=== PATIENT | male | born 1945 | race African-American/Black ===

== ENCOUNTER 2017-12-29 10:37 | Emergency (ER) | payer MEDICARE, OTHER ==
[~2017-12-29] VITALS: Ht 195.6 cm; Wt 79.8 kg
[~2017-12-29 10:37] MED LIST: ASPIR 8181 MG ORAL; LEVAQUIN500 MG ORAL; METRONIDAZOLE500 MG ORAL; PROTONIX40 MG ORAL
[2017-12-29] MEDS ORDERED: Acetaminophen 500mg (ES) tab PO ONE (11:00)
[2017-12-29] MEDS ORDERED: NORCO 5-325 TA1 EACH ORAL (12:28)
[2017-12-29 12:37] VITALS: BP 175/91
--- NOTE | 2017-12-29 12:52 | Diagnostic Imaging Report ---
Indication: left ankle/foot pain Comparison: None Findings: 3 views of the left ankle and foot obtained. There is an acute fracture of the lateral malleolus. Soft tissue swelling noted adjacently. No other fractures are identified. There is an old, healed fracture of the fifth metatarsal. Mild hallux valgus noted. Narrowing of the first MTP joint demonstrated. IMPRESSION: Acute fracture of the lateral malleolus.
--- NOTE | 2017-12-29 14:58 | Emergency Room Report ---
History of Present Illness General Chief Complaint: Lower Extremity Injury Source: Patient Present Illness HPI 72-year-old male presents ED complaining of left ankle pain and swelling. States that 2 days ago he tripped and fell and rolled his ankle. Denies any other injuries. Notes pain and swelling to the left ankle, throbbing, 8 out of 10, nonradiating. Notes difficulty bearing weight. No other aggravating relieving factors. Denies any other associated symptoms Allergies: Coded Allergies: No Known Allergies (Unverified , 02/02/15) Patient History Past Medical History: none Past Surgical History: none Pertinent Family History: none Social History: Denies: smoking, alcohol use, drug use Immunizations: UTD Reviewed Nursing Documentation: PMH: Agreed; PSxH: Agreed Nursing Documentation-PMH Past Medical History: No History, Except For Hx Cardiac Problems: No Hx Cancer: No Hx Gastrointestinal Problems: Yes Hx Neurological Problems: No Review of Systems All Other Systems: negative except mentioned in HPI Physical Exam Vital Signs Date Time Temp Pulse Resp B/P (MAP) Pulse Ox O2 Delivery O2 Flow Rate FiO2 12/29/17 10:39 98.1 110 18 175/91 96 Room Air 98.1 Sp02 EP Interpretation: reviewed, normal General Appearance: no apparent distress, alert, GCS 15, non-toxic Head: normocephalic Eyes: bilateral eye normal inspection, bilateral eye PERRL ENT: normal ENT inspection Neck: normal inspection Respiratory: normal inspection Cardiovascular #1: normal inspection Gastrointestinal: normal inspection Rectal: deferred Genitourinary: no CVA tenderness Musculoskeletal: decreased range of motion, swelling - L ankle Neurologic: alert, oriented x3, responsive, motor strength/tone normal, sensory intact, speech normal Psychiatric: normal inspection Skin: normal inspection Lymphatic: normal inspection Procedures Splinting Splinting : Consent: Verbal Splint: poserior short Pre-Proc Neuro Vasc Exam: normal Post-Proc Neuro Vasc Exam: normal Patient Tolerated: Well Complications: None Medical Decision Making Diagnostic Impression: Primary Impression: Fibula fracture Qualified Codes: S82.65XA - Nondisplaced fracture of lateral malleolus of left fibula, initial encounter for closed fracture ER Course Hospital Course 72-year-old M presents to ED complaining of L ankle pain s/p trip and fall Differential diagnoses include: Fracture, dislocation, sprain, contusion Clinical course Patient placed on stretcher. After initial history and physical, I ordered pain medications and Xrays of L ankle Xrays prelim read shows lateal malleolus fx. placed in posterior splint, given crutches informed PMD Dr Lester of findings. i spoke to patient. gave instructions. i' ll provide ortho referral Diagnosis - fibula fx Stable and discharged to home with prescription for [place]. apply ice, keep elevated. weight bear as tolerated. Followup with ortho. Return to ED if symptoms recur or worsen Other X-Ray Diagnostic Results Other X-Ray Diagnostic Results #1: X-Ray ordered: L ankle # of Views/Limited Vs Complete: 3 View Indication: Pain EP Interpretation: Yes Interpretation: no dislocation, other - lateral malleolus fx Impression: Other - fx Other X-Ray Diagnostic Results #2: X-Ray ordered: L foot # of Views/Limited Vs Complete: 3 View Indication: Pain EP Interpretation: Yes Interpretation: no dislocation, no fractures Impression: Other - lateral malleolus fx Electronically Signed by: Electronically signed by Jeffry Rose MD Last Vital Signs Date Time Temp Pulse Resp B/P (MAP) Pulse Ox O2 Delivery O2 Flow Rate FiO2 12/29/17 12:37 98.1 18 175/91 96 Room Air 98.1 12/29/17 10:39 110 Status: improved Disposition: HOME, SELF-CARE Condition: Stable Scripts Hydrocodone Bit/Acetaminophen 5-325* (NORCO 5-325*) 1 Each Tablet 1 TAB ORAL Q6H PRN for For Pain, #10 TAB 0 Refills Prov: Jeffry Rose MD 12/29/17 Referrals: Hamilton Munguia MD Patient Instructions: Fibular Fracture With [facility] Jeffry Rose MD Dec 29, 2017 14:57
== END 2017-12-29 12:40 | disposition home or self-care (01) ==
LOC: EMR 11:20
DX: S82.65XA Nondisplaced fracture of lateral malleolus of left fibula, initial encounter for closed fracture (principal); W01.0XXA Fall on same level from slipping, tripping and stumbling without subsequent striking against object, initial encounter; Y92.9 Unspecified place or not applicable
CPT/HCPCS: 29515; 99284

== ENCOUNTER 2018-12-11 06:42 | Emergency (ER) | payer MEDICARE, OTHER ==
[~2018-12-11] VITALS: Ht 195.6 cm; Wt 79.4 kg
[~2018-12-11 06:42] MED LIST changes: +NORCO 5-325 TA1 EACH ORAL
[2018-12-11] MEDS ORDERED: NORVASC10 MG ORAL (06:50)
--- NOTE | 2018-12-11 06:52 | NUR ---
ED Nurse Note: pt walked in c/o left hip pain radiating to groin area x 3-4 days, pt denies any recent trauma nor injuries, denies problem with urination nor BM, pt reports pain worsen when prolonged sitting or activity. pt ambulates w/ steady gait with cane, vss, will cont monitor.
[2018-12-11 06:58] VITALS: BP 175/98
--- NOTE | 2018-12-11 07:06 | NUR ---
HAND-OFF: Report given to CAMMIE Calzada and endorsed care, pt vss, resp even and unlabored on RA, urine specimen sent to lab, spouse member at the bedside.
[2018-12-11 07:16] LABS: APPEARANCE,URINE CLEAR; BILIRUBIN, URINE NEGATIVE (NEGATIVE); COLOR,URINE PALE YELLOW; GLUCOSE, URINE (UA) NEGATIVE (NEGATIVE); KETONES,URINE NEGATIVE (NEGATIVE); LEUKOCYTE ESTERASE ,URINE NEGATIVE (NEGATIVE); NITRITE,URINE NEGATIVE (NEGATIVE); PH,URINE 7 (4.5-8.0); PROTEIN,URINE NEGATIVE (NEGATIVE); UROBILINOGEN,URINE NORMAL MG/DL (0.0-1.0)
--- NOTE | 2018-12-11 07:22 | NUR ---
ED Nurse Note: machining technician at the bed side for hip xray.
--- NOTE | 2018-12-11 07:47 | Emergency Room Report ---
History of Present Illness General Chief Complaint: Pain Source: Patient Present Illness HPI This patient complains of left flank pain radiating to his left groin for the past 3 days. He states it is a constant ache. He denies recent illness. He denies dysuria or hematuria. He denies fever or chills. He denies nausea or vomiting. He denies diarrhea or constipation. He has no other complaints. Allergies: Coded Allergies: No Known Allergies (Unverified , 02/02/15) Patient History Past Medical History: see triage record, HTN, other - cirrhosis Social History: Denies: smoking, alcohol use - Hx of ETOH abuse. No ETOH for many years., drug use Reviewed Nursing Documentation: PMH: Agreed; PSxH: Agreed Nursing Documentation-PMH Past Medical History: No Stated History Hx Cardiac Problems: No Hx Hypertension: Yes Hx Cancer: No Hx Gastrointestinal Problems: Yes Hx Neurological Problems: No Review of Systems All Other Systems: negative except mentioned in HPI Physical Exam Vital Signs Date Time Temp Pulse Resp B/P (MAP) Pulse Ox O2 Delivery O2 Flow Rate FiO2 12/11/18 06:45 98.2 87 18 175/98 (123) 95 Room Air Sp02 EP Interpretation: reviewed, normal General Appearance: no apparent distress, alert, GCS 15, non-toxic Head: normocephalic, atraumatic Eyes: bilateral eye normal inspection, bilateral eye PERRL ENT: hearing grossly normal, normal pharynx, no angioedema, normal voice Neck: full range of motion, supple/symm/no masses Respiratory: chest non-tender, lungs clear, normal breath sounds, no respiratory distress, no retraction, no accessory muscle use, speaking full sentences Cardiovascular #1: regular rate, rhythm, no edema Gastrointestinal: normal bowel sounds, non tender, soft, non-distended, no guarding, no rebound, other Rectal: deferred Musculoskeletal: back normal, normal range of motion, non-tender, other - Antalgic gait, uses a cane. Neurologic: alert, oriented x3, responsive, motor strength/tone normal, sensory intact, speech normal Psychiatric: judgement/insight normal, memory normal, mood/affect normal, no suicidal/homicidal ideation Skin: normal color, no rash, warm/dry, well hydrated Medical Decision Making Diagnostic Impression: Primary Impression: Flank pain Additional Impressions: Cirrhosis of liver Liver masses ER Course This patient has a clinical presentation consistent with undifferentiated L. flank pain. The pain was not reproducible. I did obtain a CT abd/pelvis to assess for intra-abdominal process. There was no acute process. However, there is an incidental finding of 3 liver masses. Also, the liver appears cirrhotic, which is in this patient's history. There was no etiology for the patient's left flank pain. Possibly this is musculoskeletal in etiology. Left hip x-ray was unremarkable. Urinalysis was unremarkable. There is no evidence of hip fracture or urinary tract infection. The patient was instructed to follow-up with the primary care physician for further evaluation of the liver masses. No emergency medical condition was identified. The patient was given return precautions and followup instructions. Laboratory Tests Test 12/11/18 06:59 Urine Color Pale yellow Urine Appearance Clear Urine pH 7 (4.5-8.0) Urine Specific [place] 1.005 (1.005-1.035) Urine Protein Negative (NEGATIVE) Urine Glucose (UA) Negative (NEGATIVE) Urine Ketones Negative (NEGATIVE) Urine Blood Negative (NEGATIVE) Urine Nitrite Negative (NEGATIVE) Urine Bilirubin Negative (NEGATIVE) Urine Urobilinogen Normal MG/DL (0.0-1.0) Urine Leukocyte Esterase Negative (NEGATIVE) Other X-Ray Diagnostic Results Other X-Ray Diagnostic Results : X-Ray ordered: L. hip # of Views/Limited Vs Complete: Complete Indication: Pain EP Interpretation: Yes Interpretation: no dislocation, no fractures Impression: No acute disease Electronically Signed by: Lara Waldron DO CT/MRI/US Diagnostic Results CT/MRI/US Diagnostic Results : Imaging Test Ordered: CT abd/pelvis Impression Liver masses. Cirrhosis. See the official report in electronic medical record. Last Vital Signs Date Time Temp Pulse Resp B/P (MAP) Pulse Ox O2 Delivery O2 Flow Rate FiO2 12/11/18 06:58 98.2 79 18 175/98 95 Room Air Status: improved Disposition: HOME, SELF-CARE Condition: Improved Lara Waldron DO Dec 11, 2018 07:47
--- NOTE | 2018-12-11 08:00 | NUR ---
ED Nurse Note: CHARGE NURSE CALLED CT TO FFU P WITH PROCEDURE.
--- NOTE | 2018-12-11 08:20 | NUR ---
ED Nurse Note: SECOND TIME TO CALL CT TO FF UP WITH PROCEDURE.
--- NOTE | 2018-12-11 08:25 | NUR ---
ED Nurse Note: PT TAKEN TO CT.
--- NOTE | 2018-12-11 08:31 | NUR ---
ED Nurse Note: PT CAME BACK FROM CT.
[2018-12-11] MEDS ORDERED: LIDODERM700 M1 TOPIC (09:10)
--- NOTE | 2018-12-11 09:17 | Diagnostic Imaging Report ---
Indication: Left hip pain for one day Technique: One view of the pelvis, 2 views of the left hip Comparison: none Findings: No acute fractures. No dislocations. There are extensive vascular calcifications. Vascular stents are seen in the left common iliac, right common femoral and right superficial femoral arteries. The joint spaces are preserved. There are degenerative changes of the lumbosacral junction Impression: No acute process. Findings as noted
[2018-12-11 09:18] VITALS: BP 156/90
--- NOTE | 2018-12-11 09:18 | Diagnostic Imaging Report ---
Indication: Flank pain radiating to left groin for past 3 days Technique: Spiral acquisitions obtained through the abdomen and pelvis. No oral contrast utilized, per emergency room physician request No IV contrast utilized, per referring physician request.. Multiplanar reconstructions were generated. Total dose length product 712.33 mGycm. CTDIvol(s) 13.58 mGy. Dose reduction achieved using automated exposure control Comparison: 02/06/2015 Findings: There is a right interpolar region calyceal calculus which measures approximately 3 mm diameter, not evident on the previous exam. No left renal calculi. No ureteral calculi demonstrated. No hydronephrosis nor hydroureter. Lack of IV contrast limits assessment of the renal parenchyma. No gross renal parenchymal mass or cyst. The bladder is unremarkable. The prostate is prominent. Lack of IV contrast limits assessment of the other solid organs. The liver demonstrates a soft tissue attenuation slightly low-attenuation mass in segment 2 which measures 3 cm in diameter. This is not evident previously. Another similar lesion is seen posteriorly in segment 7 measuring 2.3 cm in diameter. A third is seen at the posterior border of segment one measuring 2.5 cm in diameter. There is a tiny subcentimeter low-attenuation lesion in segment 4A, not definitely evident previously. The liver demonstrates surface nodularity. This is also new finding. The gallbladder contains small gallstones. These are not evident on the prior CT or an earlier 2015 sonogram. No gallbladder wall thickening or pericholecystic inflammation. No biliary ductal dilatation. The pancreas and spleen are unremarkable. A small calcification is seen in the posterior right adrenal, also evident previously. No retroperitoneal or mesenteric mass or adenopathy. No pelvic mass or adenopathy. The left testicle is somewhat high in the inguinal canal. This is not evident previously, however. Lack of enteric contrast limits assessment of the GI tract. There is colonic diverticulosis. No evidence of diverticulitis. The appendix is not definitely visualized, but no findings to suggest acute appendicitis are evident. No small bowel distention. Previously demonstrated free pelvic fluid is no longer evident. There is a small fat-containing umbilical hernia again demonstrated. The distal esophagus, stomach, duodenum are unremarkable. The included lung bases demonstrate small scattered bullae. There is some atelectatic changes or scarring at the lung bases. The bones demonstrate degenerative spondylosis changes. The common iliac artery is ectatic on the right but not frankly aneurysmal. Vascular stents are seen in the right common femoral and superficial femoral arteries as well as in the left common iliac artery. Impression: Limited assessment of the GI tract, due to lack of enteric contrast administration. No definite acute process Multiple masses within the right hepatic lobe, not evident on prior exam of 2014. These are concerning for multifocal neoplasm Hepatic surface nodularity suggestive of cirrhosis, also not definitely evident on prior 2015 exam. Nonobstructive right intrarenal 3 mm calculus. No evidence of ureteral calculi or obstructive uropathy Colonic diverticulosis. No evidence of diverticulitis Cholelithiasis, not evident on earlier studies Somewhat high position of the left testicle, possibly incompletely descended. However, this finding is not evident on the earlier study, may be transient. Correlate with clinical findings Evidence of COPD changes at the lung bases. Other findings as noted, including right common and superficial femoral and left common iliac artery vascular stents, ectatic right common iliac artery, degenerative spondylosis changes, small fat-containing umbilical hernia Findings discussed by phone with Dr. Mcallister in the emergency room at the time of interpretation The CT scanner at [facility] is accredited by the [employer] [place] and the scans are performed using protocols designed to limit radiation exposure to as low as reasonably achievable to attain images of sufficient resolution adequate for diagnostic evaluation.
--- NOTE | 2018-12-11 09:18 | NUR ---
ER DISCHARGE NOTE: Patient is cleared to be discharged per ERMD, pt is aox4, on room air, with stable vital signs. pt was given dc and prescription instructions, pt was able to verbalize understanding, pt id band removed. pt is able to ambulate with steady gait. pt took all belongings and left with his family member.
== END 2018-12-11 09:18 | disposition home or self-care (01) ==
LOC: EMR 07:40
DX: K74.60 Unspecified cirrhosis of liver (principal); R10.9 Unspecified abdominal pain; R16.0 Hepatomegaly, not elsewhere classified; I10 Essential (primary) hypertension; M25.552 Pain in left hip
CPT/HCPCS: 73502; 74176; 81003; 99284

== ENCOUNTER 2019-12-30 10:18 | Inpatient (IN) | payer MEDICARE, OTHER ==
[~2019-12-30] VITALS: Ht 195.6 cm; Wt 80.3 kg
[~2019-12-30 10:18] MED LIST changes: +LIDODERM700 M1 TOPIC; +NORVASC10 MG ORAL
[2019-12-30 10:35] VITALS: BP 127/74
--- NOTE | 2019-12-30 10:47 | Emergency Room Report ---
History of Present Illness General Chief Complaint: Abdominal Pain Source: Patient, Medical Record Present Illness HPI Patient is a 74-year-old male presents after increased suprapubic abdominal pain. Reports having been able to urinate this morning. Had prior history of liver cancer. Is currently followed by Dr. shi. Patient reports having dark stool with some associated diarrhea. Denies any fever or cough. Had noticed some intermittent testicular pain. Denies any hematemesis or epigastric pain. Previously had CT imaging which showed multiple masses to his liver. Allergies: Coded Allergies: No Known Allergies (Unverified , 02/02/15) COVID-19 Screening Contact w/high risk pt: No Experienced COVID-19 symptoms?: No COVID-19 Testing performed CERTIFIED NURSE PRACTITIONER: No Patient History Past Medical History: see triage record Reviewed Nursing Documentation: PMH: Agreed; PSxH: Agreed Nursing Documentation-PMH Past Medical History: No History, Except For Hx Cardiac Problems: No Hx Hypertension: Yes Hx Cancer: No Hx Gastrointestinal Problems: Yes Hx Neurological Problems: No Review of Systems All Other Systems: negative except mentioned in HPI Physical Exam Vital Signs Date Time Temp Pulse Resp B/P (MAP) Pulse Ox O2 Delivery O2 Flow Rate FiO2 12/30/19 10:31 97.5 113 20 135/75 (95) 100 Room Air General Appearance: alert, GCS 15, mild distress Eyes: bilateral eye conjunctivae pale ENT: hearing grossly normal Neck: full range of motion Respiratory: normal inspection, chest non-tender Cardiovascular #1: normal inspection, tachycardia Gastrointestinal: normal inspection, non tender, soft, other - ascites, umbilical hernia without bowel Musculoskeletal: normal inspection Neurologic: alert, motor strength/tone normal, steel box toe inserter III-XII nml as tested, oriented x3 Psychiatric: normal inspection Skin: pallor Medical Decision Making Diagnostic Impression: Primary Impression: GI (gastrointestinal hemorrhage) Additional Impression: Liver cancer ER Course Patient presented for increased dark stool. Differential diagnosis include was not limited to anemia, GI bleeding, ulcer among others. Because of complexity of patient's case laboratory tests and imaging studies were ordered. Patient noted some prior history of cancer. I was noted to be tachycardic. Laboratory testing was ordered and patient was advised he likely require admission due to tachycardia. Patient was seen in the emergency department by Dr. Lester after discussion with him. Patient was noted to be somewhat anemic and was typed and screened for blood.Dr. aDniel Lange was contacted for inpatient management. Labs Test 12/30/19 10:36 12/30/19 11:13 White Blood Count 12.6 K/UL (4.8-10.8) Red Blood Count 2.46 M/UL (4.70-6.10) Hemoglobin 7.9 G/DL (14.2-18.0) Hematocrit 25.0 % (42.0-52.0) Mean Corpuscular Volume 102 FL (80-99) Mean Corpuscular Hemoglobin 32.0 PG (27.0-31.0) Mean Corpuscular Hemoglobin Concent 31.5 G/DL (32.0-36.0) Red Cell Distribution Width 14.1 % (11.6-14.8) Platelet Count 397 K/UL (150-450) Mean Platelet Volume 7.1 FL (6.5-10.1) Neutrophils (%) (Auto) % (45.0-75.0) Lymphocytes (%) (Auto) % (20.0-45.0) Monocytes (%) (Auto) % (1.0-10.0) Eosinophils (%) (Auto) % (0.0-3.0) Basophils (%) (Auto) % (0.0-2.0) Differential Total Cells Counted 100 Neutrophils % (Manual) 88 % (45-75) Lymphocytes % (Manual) 5 % (20-45) Monocytes % (Manual) 6 % (1-10) Eosinophils % (Manual) 0 % (0-3) Basophils % (Manual) 1 % (0-2) Band Neutrophils 0 % (0-8) Platelet Estimate Adequate Platelet Morphology Normal Hypochromasia 3+ Anisocytosis 1+ Macrocytosis 1+ Prothrombin Time 11.7 SEC (9.30-11.50) Prothromb Time International Ratio 1.1 (0.9-1.1) Activated Partial Thromboplast Time 29 SEC (23-33) Sodium Level 133 MMOL/L (136-145) Potassium Level 4.4 MMOL/L (3.5-5.1) Chloride Level 100 MMOL/L (98-107) Carbon Dioxide Level 21 MMOL/L (21-32) Anion Gap 12 mmol/L (5-15) Blood Urea Nitrogen 12 mg/dL (7-18) Creatinine 1.0 MG/DL (0.55-1.30) Estimat Glomerular Filtration Rate > 60 mL/min (>60) Glucose Level 127 MG/DL (74-106) Calcium Level 8.7 MG/DL (8.5-10.1) Total Bilirubin 0.9 MG/DL (0.2-1.0) Aspartate Amino Transf (AST/SGOT) 44 U/L (15-37) Alanine Aminotransferase (ALT/SGPT) 20 U/L (12-78) Alkaline Phosphatase 103 U/L (46-116) Troponin I 0.000 ng/mL (0.000-0.056) Total Protein 7.8 G/DL (6.4-8.2) Albumin 2.9 G/DL (3.4-5.0) Globulin 4.9 g/dL Albumin/Globulin Ratio 0.6 (1.0-2.7) Lipase 122 U/L (73-393) Urine Color Yellow Urine Appearance Clear Urine pH 6 (4.5-8.0) Urine Specific [place] 1.015 (1.005-1.035) Urine Protein 1+ (NEGATIVE) Urine Glucose (UA) Negative (NEGATIVE) Urine Ketones Negative (NEGATIVE) Urine Blood Negative (NEGATIVE) Urine Nitrite Negative (NEGATIVE) Urine Bilirubin Negative (NEGATIVE) Urine Urobilinogen 1 MG/DL (0.0-1.0) Urine Leukocyte Esterase Negative (NEGATIVE) Urine RBC 0-2 /HPF (0 - 0) Urine WBC 2-4 /HPF (0 - 0) Urine Squamous Epithelial Cells Occasional /LPF Urine Bacteria Occasional /HPF (NONE) Urine Hyaline Casts 0-2 /LPF (NONE) EKG Diagnostic Results Rate: tachycardiac Rhythm: NSR ST Segments: no acute changes Last Vital Signs Date Time Temp Pulse Resp B/P (MAP) Pulse Ox O2 Delivery O2 Flow Rate FiO2 12/30/19 10:35 97.5 118 20 127/74 98 Room Air Status: unchanged Disposition: ADMITTED INPATIENT Condition: Stable Referrals: Daniel Lange MD (PCP) Eben Chavez MD Dec 30, 2019 10:47
[2019-12-30 11:00] LABS: HEMOGLOBIN 7.9 G/DL (14.2-18.0); MEAN CORPUSCULAR VOLUME 102 FL (80-99); PLATELET COUNT 397 K/UL (150-450); RED BLOOD COUNT 2.46 M/UL (4.70-6.10); RED CELL DISTRIBUTION WIDTH 14.1 % (11.6-14.8); WHITE BLOOD COUNT 12.6 K/UL (4.8-10.8)
[2019-12-30 11:03] LABS: ANION GAP 12 mmol/L (5-15); BLOOD UREA NITROGEN 12 mg/dL (7-18); CALCIUM 8.7 MG/DL (8.5-10.1); CARBON DIOXIDE 21 MMOL/L (21-32); CHLORIDE 100 MMOL/L (98-107); POTASSIUM 4.4 MMOL/L (3.5-5.1); SODIUM 133 MMOL/L (136-145)
[2019-12-30 11:06] LABS: INR 1.1 (0.9-1.1)
[2019-12-30 11:08] LABS: ALANINE AMINOTRANSFERASE 20 U/L (12-78); ALBUMIN 2.9 G/DL (3.4-5.0); ALBUMIN/GLOBULIN RATIO 0.6 (1.0-2.7); ALKALINE PHOSPHATASE 103 U/L (46-116); ASPARTATE AMINO TRANSFERASE 44 U/L (15-37); BILIRUBIN,TOTAL 0.9 MG/DL (0.2-1.0)
[2019-12-30 11:40] LABS: APPEARANCE,URINE CLEAR; BILIRUBIN, URINE NEGATIVE (NEGATIVE); GLUCOSE, URINE (UA) NEGATIVE (NEGATIVE); KETONES,URINE NEGATIVE (NEGATIVE); LEUKOCYTE ESTERASE ,URINE NEGATIVE (NEGATIVE); NITRITE,URINE NEGATIVE (NEGATIVE); PH,URINE 6 (4.5-8.0); PROTEIN,URINE 1+ (NEGATIVE); UROBILINOGEN,URINE 1 MG/DL (0.0-1.0)
[2019-12-30] MEDS ORDERED: Nitroglycerin Subl 0.4mg tab SL PRN (12:00)
[2019-12-30] MEDS ORDERED: Miralax 17gm pkt ORAL PRN (12:00)
[2019-12-30 12:02] VITALS: BP 124/79
[2019-12-30 12:02] LABS: COLOR,URINE YELLOW
--- NOTE | 2019-12-30 12:03 | Consultation ---
History of Present Illness General Date patient seen: Dec 30, 2019 Chief Complaint: Abdominal Pain Present Illness HPI 74 year old male with hx of cirrhosis, hepatitis C, Hepatocellular cancer, s/p ablation. hx of duodenal ulcer with GI bleeding in the past, presented to ER with CC of lower abdominal pain and lower GI Bleeding. Pt is admitted to telemetry for further management. Allergies: Coded Allergies: No Known Allergies (Unverified , 02/02/15) Medication History Scheduled Amlodipine Besylate (Norvasc), 10 MG ORAL DAILY, (Reported) Discontinued Medications Aspirin* (Aspir 81*), 81 MG ORAL DAILY, (Reported) Discontinued Reason: Pt stopped taking med Hydrocodone Bit/Acetaminophen 5-325* (Bru[place] 5-325*), 1 TAB ORAL Q6H PRN for For Pain Discontinued Reason: Pt stopped taking med Levofloxacin* (Levaquin*), 500 MG ORAL DAILY Discontinued Reason: Pt stopped taking med Lidocaine Patch* (Lidoderm Patch*), 1 PATCH TOPIC see instructions Discontinued Reason: Pt stopped taking med Metronidazole* (Flagyl*), 500 MG ORAL EVERY 8 HOURS Discontinued Reason: Pt stopped taking med Pantoprazole* (Protonix*), 40 MG ORAL DAILY Discontinued Reason: Pt stopped taking med Patient History Healthcare decision maker Resuscitation status Advanced Directive on File Past Medical/Surgical History Past Medical/Surgical History: (1) Liver cancer (2) DU (duodenal ulcer) (3) Fibula fracture Review of Systems Endocrine: Reports: no symptoms Hematologic/Lymphatic: Reports: no symptoms All Other Systems: negative except mentioned in HPI Physical Exam General Appearance: cachetic, thin Lines, tubes and drains: peripheral HEENT: normocephalic, atraumatic Neck: non-tender, normal alignment Respiratory/Chest: chest wall non-tender, lungs clear Breasts: no masses Cardiovascular/Chest: normal peripheral pulses Abdomen: normal bowel sounds, non tender Genitourinary/Rectal: normal genital exam Extremities: normal range of motion Neurologic: clinical support associate II-XII grossly normal Last 24 Hour Vital Signs Date Time Temp Pulse Resp B/P (MAP) Pulse Ox O2 Delivery O2 Flow Rate FiO2 12/30/19 10:35 97.5 118 20 127/74 98 Room Air 12/30/19 10:35 118 20 Room Air 12/30/19 10:31 97.5 113 20 135/75 (95) 100 Room Air Laboratory Tests Test 12/30/19 10:36 12/30/19 11:13 White Blood Count 12.6 K/UL (4.8-10.8) H Red Blood Count 2.46 M/UL (4.70-6.10) L Hemoglobin 7.9 G/DL (14.2-18.0) L Hematocrit 25.0 % (42.0-52.0) L Mean Corpuscular Volume 102 FL (80-99) H Mean Corpuscular Hemoglobin 32.0 PG (27.0-31.0) H Mean Corpuscular Hemoglobin Concent 31.5 G/DL (32.0-36.0) L Red Cell Distribution Width 14.1 % (11.6-14.8) Platelet Count 397 K/UL (150-450) Mean Platelet Volume 7.1 FL (6.5-10.1) Neutrophils (%) (Auto) % (45.0-75.0) Lymphocytes (%) (Auto) % (20.0-45.0) Monocytes (%) (Auto) % (1.0-10.0) Eosinophils (%) (Auto) % (0.0-3.0) Basophils (%) (Auto) % (0.0-2.0) Differential Total Cells Counted 100 Neutrophils % (Manual) 88 % (45-75) H Lymphocytes % (Manual) 5 % (20-45) L Monocytes % (Manual) 6 % (1-10) Eosinophils % (Manual) 0 % (0-3) Basophils % (Manual) 1 % (0-2) Band Neutrophils 0 % (0-8) Platelet Estimate Adequate Platelet Morphology Normal Hypochromasia 3+ Anisocytosis 1+ Macrocytosis 1+ Prothrombin Time 11.7 SEC (9.30-11.50) H Prothromb Time International Ratio 1.1 (0.9-1.1) Activated Partial Thromboplast Time 29 SEC (23-33) Sodium Level 133 MMOL/L (136-145) L Potassium Level 4.4 MMOL/L (3.5-5.1) Chloride Level 100 MMOL/L (98-107) Carbon Dioxide Level 21 MMOL/L (21-32) Anion Gap 12 mmol/L (5-15) Blood Urea Nitrogen 12 mg/dL (7-18) Creatinine 1.0 MG/DL (0.55-1.30) Estimat Glomerular Filtration Rate > 60 mL/min (>60) Glucose Level 127 MG/DL (74-106) H Calcium Level 8.7 MG/DL (8.5-10.1) Total Bilirubin 0.9 MG/DL (0.2-1.0) Aspartate Amino Transf (AST/SGOT) 44 U/L (15-37) H Alanine Aminotransferase (ALT/SGPT) 20 U/L (12-78) Alkaline Phosphatase 103 U/L (46-116) Troponin I 0.000 ng/mL (0.000-0.056) Total Protein 7.8 G/DL (6.4-8.2) Albumin 2.9 G/DL (3.4-5.0) L Globulin 4.9 g/dL Albumin/Globulin Ratio 0.6 (1.0-2.7) L Lipase 122 U/L (73-393) Urine Color Pending Urine Appearance Pending Urine pH Pending Urine Specific Draper Pending Urine Protein Pending Urine Glucose (UA) Pending Urine Ketones Pending Urine Blood Pending Urine Nitrite Pending Urine Bilirubin Pending Urine Urobilinogen Pending Urine Leukocyte Esterase Pending Height (Feet): 6 Height (Inches): 5.00 Weight (Pounds): 177 Assessment/Plan Problem List: (1) GI (gastrointestinal hemorrhage) ICD Codes: K92.2 - GI (gastrointestinal hemorrhage) SNOMED: 38992848 (2) Intractable abdominal pain ICD Codes: R10.9 - Unspecified abdominal pain SNOMED: 14301399 (3) Liver cancer ICD Codes: C22.9 - Malignant neoplasm of liver, not specified as primary or secondary SNOMED: 63390719 (4) Liver cirrhosis ICD Codes: K74.60 - Unspecified cirrhosis of liver SNOMED: 09673458 (5) History of hypertension ICD Codes: Z86.79 - Personal history of other diseases of the circulatory system SNOMED: 758851433 (6) Hepatitis C ICD Codes: B19.20 - Unspecified viral hepatitis C without hepatic coma SNOMED: 47490674 Assessment/Plan: NPO IV fluids check electrolytes GI evaluation PRBC prn monitor BP dvt prophylaxis abdominal US for possible paracentesis Erika Santana MD Dec 30, 2019 12:03
--- NOTE | 2019-12-30 13:05 | General Progress Note ---
Assessment/Plan Assessment/Plan: Assessment - h/o Hepatitis C - eradicated in 2014 - Cirrhosis - h/o hepatocellular carcinoma - s/p microwave ablation 2016, negative surveillance, last 03/2019 - h/o Duodenal ulcer 01/2015 - anemia, - H&H , 01/2019 - Dark stools, presumed GIB, await stool OB confirmation since also took peptobismol Recommendations - NPO - PPI - Serial CBC - transfuse PRN - EGD in am at 0700 Thank you Aureliano Lester MD Subjective Allergies: Coded Allergies: No Known Allergies (Unverified , 02/02/15) Objective Last 24 Hour Vital Signs Date Time Temp Pulse Resp B/P (MAP) Pulse Ox O2 Delivery O2 Flow Rate FiO2 12/30/19 12:02 97.5 100 19 124/79 99 Room Air 12/30/19 10:35 97.5 118 20 127/74 98 Room Air 12/30/19 10:35 118 20 Room Air 12/30/19 10:31 97.5 113 20 135/75 (95) 100 Room Air Laboratory Tests 12/30/19 10:36: White Blood Count 12.6H, Red Blood Count 2.46L, Hemoglobin 7.9L, Hematocrit 25.0L, Mean Corpuscular Volume 102H, Mean Corpuscular Hemoglobin 32.0H, Mean Corpuscular Hemoglobin Concent 31.5L, Red Cell Distribution Width 14.1, Platelet Count 397, Mean Platelet Volume 7.1, Neutrophils (%) (Auto) , Lymphocytes (%) (Auto) , Monocytes (%) (Auto) , Eosinophils (%) (Auto) , Basophils (%) (Auto) , Differential Total Cells Counted 100, Neutrophils % ( Manual) 88H, Lymphocytes % (Manual) 5L, Monocytes % (Manual) 6, Eosinophils % ( Manual) 0, Basophils % (Manual) 1, Band Neutrophils 0, Platelet Estimate Adequate, Platelet Morphology Normal, Hypochromasia 3+, Anisocytosis 1+, Macrocytosis 1+, Prothrombin Time 11.7H, Prothromb Time International Ratio 1.1 , Activated Partial Thromboplast Time 29, Sodium Level 133L, Potassium Level 4.4 , Chloride Level 100, Carbon Dioxide Level 21, Anion Gap 12, Blood Urea Nitrogen 12, Creatinine 1.0, Estimat Glomerular Filtration Rate > 60, Glucose Level 127H, Calcium Level 8.7, Total Bilirubin 0.9, Aspartate Amino Transf (AST/ SGOT) 44H, Alanine Aminotransferase (ALT/SGPT) 20, Alkaline Phosphatase 103, Troponin I 0.000, Total Protein 7.8, Albumin 2.9L, Globulin 4.9, Albumin/ Globulin Ratio 0.6L, Lipase 122 12/30/19 11:13: Urine Color Yellow, Urine Appearance Clear, Urine pH 6, Urine Specific Corn 1.015, Urine Protein 1+H, Urine Glucose (UA) Negative, Urine Ketones Negative, Urine Blood Negative, Urine Nitrite Negative, Urine Bilirubin Negative, Urine Urobilinogen 1H, Urine Leukocyte Esterase Negative, Urine RBC 0-2H, Urine WBC 2- 4, Urine Squamous Epithelial Cells Occasional, Urine Bacteria Occasional, Urine Hyaline Casts 0-2H Height (Feet): 6 Height (Inches): 5.00 Weight (Pounds): 177 Aureliano Lester MD Dec 30, 2019 13:05
[2019-12-30] MEDS: D5NS 1,000 ML IV SCH ×2 (15:04→22:42)
[2019-12-30 16:00] VITALS: BP 110/66
[2019-12-30] MEDS ORDERED: Omnipaque-300 100ml vial INJ PRN (17:15)
--- NOTE | 2019-12-30 17:15 | History & Physical ---
History and Physical History & Physicial Dictated for Int Med-Dr Lange no. [id number]. lSade Sierra MD Dec 30, 2019 17:15
[2019-12-30] MEDS: HYDROcodone/Acetamin 5/325 tab ORAL PRN (17:33)
--- NOTE | 2019-12-30 19:00 | History and Physical Report ---
DATE OF ADMISSION: 12/30/2019 CHIEF COMPLAINT: Patient is a 74-year-old male with a history of duodenal ulcer bleed and hepatocellular carcinoma, who presents with chief complaint of abdominal pain and cramps. HISTORY: Present illness began 2 days prior to admission. Patient began to experience suprapubic pain. Patient states his stomach was cramping up. Patient also noticed dark stools. Patient has had some diarrhea. Patient presented to [facility]. Patient was admitted with abdominal pain and dark colored stools to rule out acute gastrointestinal hemorrhage. REVIEW OF SYSTEMS: CONSTITUTIONAL: Patient denies weight loss or weight gain. Patient denies fevers or chills. HEENT: Patient denies ear or throat pain. Patient denies headache. CARDIOVASCULAR: Patient denies palpitations or chest pain. CHEST: Patient denies wheezing or shortness of breath. ABDOMINAL: Patient complains of abdominal pain as above. Patient complains of diarrhea as above. Patient complains of dark stool as above. NEUROMUSCULAR: Patient denies seizures or generalized weakness. GENITOURINARY: Patient denies dysuria or increased frequency of urination. PAST MEDICAL HISTORY: Significant for: 1. Hypertension. 2. Duodenal ulcer, status post upper gastrointestinal hemorrhage in January 2015. 3. Hepatocellular carcinoma, status post microwave ablation in 2017. Patient states his last CAT scan 6 months ago failed to demonstrate recurrence of cancer. PAST SURGICAL HISTORY: Patient denies. CURRENT MEDICATIONS: Amlodipine 10 mg p.o. daily. ALLERGIES: No known drug allergies. SOCIAL HISTORY: Patient is . Patient denies tobacco use. Patient admits to previous alcohol use, however quit 6 years previously. PHYSICAL EXAMINATION: VITAL SIGNS: Temperature 97.5, respirations 20, pulse 113, blood pressure 135/75. GENERAL: Patient is a well-developed, well-nourished male, in no apparent distress. HEENT: Eyes, pupils equal and responsive to light and accommodation. Extraocular movements are intact. NECK: Supple. No lymphadenopathy. CHEST: Lungs are clear to auscultation bilaterally without wheezes or rales. CARDIOVASCULAR: Regular rhythm and rate. S1, S2 are normal without murmurs, rubs, or gallops. ABDOMEN: Soft, nontender, and nondistended. Positive bowel sounds. No evidence of hepatosplenomegaly. Currently no rebound or guarding noted. EXTREMITIES: Negative for clubbing, cyanosis, or edema. RECTAL/GENITAL: Exams are not performed. NEUROLOGICAL: Cranial nerves II through XII are grossly intact without focal deficits. Motor strength is 5/5 bilaterally. Deep tendon reflexes are 2+, plantar. LABORATORY STUDIES: WBC 12.6, hemoglobin 7.9, hematocrit 25.0, platelets 397,000. Sodium 133, potassium 4.4, chloride 100, BUN 12, creatinine 1.0, glucose 127. AST elevated at 44. ALT normal at 20. Troponin 0.0. Lipase 122. ProTime 11.7, INR 1.1, PTT 29. Urinalysis was within normal limits. ASSESSMENT: This is a 74-year-old male. 1. Melena. 2. Suprapubic pain. 3. Hypertension. 4. History of hepatocellular carcinoma. TREATMENT: 1. Melena/suprapubic pain. A gastroenterology consultation is obtained with Dr. Aureliano Lester. Patient has a history of gastrointestinal hemorrhage. Patient may require endoscopy and colonoscopy during this hospitalization. We will follow recommendations of Gastroenterology. 2. Anemia. This is probably secondary to acute blood loss secondary to acute gastrointestinal hemorrhage. 3. Hypertension. Continue amlodipine as above. 4. History of hepatocellular carcinoma. A CAT scan of the abdomen and pelvis is pending. Slade Sierra M.D. DR: VESNA JOB#: [id number] CC:
[2019-12-30 20:00] VITALS: BP 100/50
[2019-12-31] VITALS (12 sets, daily range): BP systolic 101–124; BP diastolic 51–75
[2019-12-31] MEDS: HYDROcodone/Acetamin 5/325 tab ORAL PRN ×2 (01:10→11:08)
--- NOTE | 2019-12-31 02:00 | Consultation ---
DATE OF CONSULTATION: 12/30/2019 GASTROENTEROLOGY CONSULTATION CONSULTING PHYSICIAN: Aureliano Lester MD. CHIEF COMPLAINT: I was asked to see this patient by Dr. Daniel Lange for evaluation of gastrointestinal bleeding. HISTORY OF PRESENT ILLNESS: The patient is a pleasant 74-year-old man with a history of hepatitis C and cirrhosis who comes in with dark stool. The patient previously had a history of hepatitis C, which was chronic and which resulted in cirrhosis. However, he eventually underwent a 3-month course of Harvoni in 2015, which showed the virus. Unfortunately, he had already developed cirrhosis and more unfortunately he had hepatocellular carcinoma in 2017. This was however was successfully ablated with microwave technique and he had been followed at liver surgical clinic without recurrence per his last imaging study in March last year. He does have a history of duodenal ulcer disease with bleeding in January 2015. He now comes in with a 2-day history of black stools. He did develop discomfort in the stomach over the last few days and took Pepto-Bismol as well. PAST MEDICAL HISTORY: History of hepatitis C, cirrhosis, hepatocellular carcinoma, duodenal ulcer, history of coagulopathy. PAST SURGICAL HISTORY: Status post vascular stent in right femoral artery. ALLERGIES: No known drug allergies. FAMILY HISTORY: Noncontributory. SOCIAL HISTORY: Patient previously drank heavily and discontinued. REVIEW OF SYSTEMS: Otherwise negative. PHYSICAL EXAMINATION: GENERAL: A pleasant man, seen in the emergency room. HEENT: Normocephalic, atraumatic. Sclerae anicteric. Oropharynx clear. NECK: Supple. CHEST: Clear to auscultation. CARDIOVASCULAR: Revealed a regular rate. ABDOMEN: Soft and nontender. EXTREMITIES: Revealed no edema. LABORATORY DATA: Noted. ASSESSMENT: This patient presents with dark stools, which may be normal especially given the fact that he has some degree of cirrhosis. Alternatively, the Pepto-Bismol may be causing his dark stools or his anemia may be otherwise explained. Otherwise, patient should undergo an endoscopy since he has had a history of ulcer disease in the past. This will also give an opportunity to screen the patient for esophageal varices. RECOMMENDATIONS: 1. Serial CBC. 2. Proton pump inhibitor. 3. Endoscopy tomorrow. 4. Further recommendations to follow. Thank you for asking me to participate in the care of this patient. Aureliano Lester M.D. DR: TITA JOB#: [id number] CC: ANISHA
[2019-12-31 06:06] LABS: INR 1.1 (0.9-1.1)
[2019-12-31 06:15] LABS: ALANINE AMINOTRANSFERASE 12 U/L (12-78); ALBUMIN 2.8 G/DL (3.4-5.0); ALBUMIN/GLOBULIN RATIO 0.6 (1.0-2.7); ALKALINE PHOSPHATASE 93 U/L (46-116); AMYLASE 44 U/L (25-115); ANION GAP 11 mmol/L (5-15); ASPARTATE AMINO TRANSFERASE 34 U/L (15-37); BILIRUBIN,TOTAL 0.8 MG/DL (0.2-1.0); BLOOD UREA NITROGEN 12 mg/dL (7-18); CALCIUM 8.2 MG/DL (8.5-10.1); CARBON DIOXIDE 23 MMOL/L (21-32); CHLORIDE 101 MMOL/L (98-107); POTASSIUM 4.4 MMOL/L (3.5-5.1); SODIUM 134 MMOL/L (136-145)
[2019-12-31 06:17] LABS: HEMATOCRIT 24.7 % (42.0-52.0); HEMOGLOBIN 7.8 G/DL (14.2-18.0); MEAN CORPUSCULAR VOLUME 101 FL (80-99); PLATELET COUNT 380 K/UL (150-450); RED BLOOD COUNT 2.44 M/UL (4.70-6.10); WHITE BLOOD COUNT 11.2 K/UL (4.8-10.8)
[2019-12-31] MEDS: D5NS 1,000 ML IV SCH ×2 (11:11→17:54)
[2019-12-31] MEDS ORDERED: fentaNYL 100 mcg/2 mL IV ONE ×2 (13:18→13:30)
[2019-12-31] MEDS ORDERED: NS 500ML IVPB ONE (13:25)
--- NOTE | 2019-12-31 13:49 | Pre-Procedure Note/Attestation ---
Pre-Procedure Note/Attestation Complete Prior to Procedure Planned Procedure: not applicable Procedure Narrative: egd Indications for Procedure Pre-Operative Diagnosis: gib Attestation I attest that I discussed the nature of the procedure; its benefits; risks and complications; and alternatives (and the risks and benefits of such alternatives ), prior to the procedure, with the patient (or the patient's legal event sales representative). I attest that, if there was a reasonable possibility of needing a blood transfusion, the patient (or the patient's legal event sales representative) was given the [facility] standardized written summary, pursuant to the Darci Josef Blood Safety Act ([place] Health and Safety Code # 1645, as amended). I attest that I re-evaluated the patient just prior to the surgery and that there has been no change in the patient's H&P, except as documented below: Ha Jordan MD Dec 31, 2019 13:49
--- NOTE | 2019-12-31 13:51 | Pulmonology Progress Note ---
Subjective ROS Limited/Unobtainable: No Constitutional: Reports: no symptoms HEENT: Repors: no symptoms Respiratory: Reports: no symptoms Cardiovascular: Reports: no symptoms Gastrointestinal/Abdominal: Reports: no symptoms Genitourinary: Reports: no symptoms Allergies: Coded Allergies: No Known Allergies (Unverified , 02/02/15) Objective Last 24 Hour Vital Signs Date Time Temp Pulse Resp B/P (MAP) Pulse Ox O2 Delivery O2 Flow Rate FiO2 12/31/19 12:00 97.8 95 22 124/73 (90) 100 12/31/19 11:48 98.1 12/31/19 11:47 91 12/31/19 08:25 98.1 93 18 110/62 (78) 97 12/31/19 08:23 Room Air 12/31/19 07:41 88 12/31/19 04:00 97 12/31/19 04:00 97.7 91 18 104/69 (81) 97 12/31/19 00:00 89 12/31/19 00:00 98.1 94 18 119/65 (83) 98 12/30/19 21:00 Room Air 12/30/19 20:00 91 12/30/19 20:00 97.9 96 18 100/50 (67) 98 12/30/19 16:00 98.8 72 18 110/66 (81) 99 12/30/19 16:00 129 12/30/19 15:08 Room Air Intake and Output 12/30/19 12/31/19 19:00 07:00 Intake Total 390 ml 500 ml Output Total 0 ml Balance 390 ml 500 ml Intake IV Total 390 ml 500 ml Output Urine Total 0 ml # Voids 1 General Appearance: WD/WN HEENT: normocephalic, atraumatic Respiratory: chest wall non-tender, lungs clear Cardiovascular: normal peripheral pulses, normal rate Abdomen: normal bowel sounds, soft, non tender Genitourinary: normal external genitalia Neurologic: supervisor assembly II-XII grossly normal Microbiology Date/Time Source Procedure Growth Status 12/31/19 07:00 Nasopharynx SARS-CoV-2 RdRp Gene Assay - Final Complete Laboratory Tests 12/31/19 05:15: White Blood Count 11.2H, Red Blood Count 2.44L, Hemoglobin 7.8L, Hematocrit 24.7L, Mean Corpuscular Volume 101H, Mean Corpuscular Hemoglobin 31.9H, Mean Corpuscular Hemoglobin Concent 31.6L, Red Cell Distribution Width 14.0, Platelet Count 380, Mean Platelet Volume 7.1, Neutrophils (%) (Auto) , Lymphocytes (%) (Auto) , Monocytes (%) (Auto) , Eosinophils (%) (Auto) , Basophils (%) (Auto) , Prothrombin Time 11.9H, Prothromb Time International Ratio 1.1, Activated Partial Thromboplast Time 29, Sodium Level 134L, Potassium Level 4.4, Chloride Level 101, Carbon Dioxide Level 23, Anion Gap 11, Blood Urea Nitrogen 12, Creatinine 1.0, Estimat Glomerular Filtration Rate > 60, Glucose Level 104, Calcium Level 8.2L, Total Bilirubin 0.8, Aspartate Amino Transf (AST/SGOT) 34, Alanine Aminotransferase (ALT/SGPT) 12, Alkaline Phosphatase 93, Total Protein 7.4, Albumin 2.8L, Globulin 4.6, Albumin/Globulin Ratio 0.6L, Amylase Level 44, Lipase 74 Current Medications Medications (Trade) Dose Ordered Sig/Na Route PRN Reason Start Time Stop Time Status Last Admin Dose Admin Acetaminophen (Tylenol) 650 mg Q4H PRN ORAL fever 12/30/19 12:00 01/29/20 11:59 Acetaminophen/ Hydrocodone Bitart ([place] 5/325) 1 tab Q6H PRN ORAL For Pain 12/30/19 17:30 01/06/20 17:29 12/31/19 11:08 Barium Sulfate (Readi-Cat 2) 450 ml NOW PRN ORAL Radiology Procedure 12/30/19 17:15 01/01/20 17:08 Dextrose (Dextrose 50%) 25 ml Q30M PRN IV Hypoglycemia 12/30/19 12:00 03/29/20 11:59 Dextrose (Dextrose 50%) 50 ml Q30M PRN IV Hypoglycemia 12/30/19 12:00 03/29/20 11:59 Dextrose/Sodium Chloride 1,000 ml @ 100 mls/hr Q10H IV 12/30/19 11:54 01/29/20 11:53 12/31/19 11:11 Diphenhydramine HCl (Benadryl) 25 mg Q6H PRN ORAL Itching/Pruritis 12/30/19 12:00 01/29/20 11:59 Iohexol (OMNIPAQUE-300 100ml) 100 ml NOW PRN INJ Radiology Procedure 12/30/19 17:15 01/01/20 17:08 Nitroglycerin (Ntg) 0.4 mg Q5M X 3 DOSES PRN SL Prn Chest Pain 12/30/19 12:00 01/29/20 11:59 Ondansetron HCl (Zofran) 4 mg Q6H PRN IVP Nausea & Vomiting 12/30/19 12:00 01/29/20 11:59 12/31/19 11:09 Polyethylene Glycol (Miralax) 17 gm HSPRN PRN ORAL Constipation 12/30/19 12:00 01/29/20 11:59 Temazepam (Restoril) 15 mg HSPRN PRN ORAL Insomnia 12/30/19 12:00 01/06/20 11:59 Assessment/Plan Problems: (1) GI (gastrointestinal hemorrhage) (2) Intractable abdominal pain (3) Liver cirrhosis (4) History of hypertension (5) Hepatitis C (6) Liver cancer Assessment/Plan continue NPO EGD is planned for today IV fluids check electrolytes GI evaluation PRBC prn monitor BP dvt prophylaxis abdominal US for possible paracentesis Erika Santana MD Dec 31, 2019 13:51
--- NOTE | 2019-12-31 13:55 | Anethesia Preoperative Eval ---
Anesthesia Pre-op PMH/ROS General Date of Evaluation: Dec 31, 2019 Time of Evaluation: 13:45 Anesthesiologist: Gavi ASA Score: ASA 4 Mallampati Score Class I : Soft palate, uvula, fauces, pillars visible Class II: Soft palate, uvula, fauces visible Class III: Soft palate, base of uvula visible Class IV: Only hard plate visible Mallampati Classification: Class II Surgeon: Meggan Diagnosis: GI bleed Surgical Procedure: EGD Anesthesia History: none Family History: no anesthesia problems Allergies: Coded Allergies: No Known Allergies (Unverified , 02/02/15) Medications: see eMAR Patient NPO?: Yes Past Medical History Cardiovascular: Reports: HTN; Denies: CAD, ND, valve dz, arrhythmia, other Gastrointestinal/Genitourinary: Reports: GERD, other - Liver CA, cirrosis? ascitis; Denies: CRI, ESRD Neurologic/Psychiatric: Reports: depression/anxiety Endocrine: Denies: DM, hypothyroidism, steroids, other HEENT: Denies: cataract (L), cataract (R), glaucoma, SENECA (L), SENECA (R), other Hematology/Immune: Reports: anemia - mild; Denies: DVT, bleeding disorder, other Musculoskeletal/Integumentary: Reports: OA; Denies: RA, DJD, DDD, edema, other Other: other - malnourished PMH Narrative: as above PSxH Narrative: See H&P Anesthesia Pre-op Phys. Exam Physician Exam Last Vital Signs Date Time Temp Pulse Resp B/P (MAP) Pulse Ox O2 Delivery O2 Flow Rate FiO2 12/31/19 12:00 97.8 95 22 124/73 (90) 100 12/31/19 08:23 Room Air Constitutional: NAD Neurologic: CN 2-12 intact Cardiovascular: RRR, no M/R/G Respiratory: CTA Gastrointestinal: other - Distended, tender Airway Exam Mallampati Score: Class II MO: limited Neck: stiff ROM: limited Teeth: missing Dentures: no upper, no lower Anesthesia Pre-op A/P Labs Hematology Test 12/31/19 05:15 White Blood Count 11.2 K/UL (4.8-10.8) H Red Blood Count 2.44 M/UL (4.70-6.10) L Hemoglobin 7.8 G/DL (14.2-18.0) L Hematocrit 24.7 % (42.0-52.0) L Mean Corpuscular Volume 101 FL (80-99) H Mean Corpuscular Hemoglobin 31.9 PG (27.0-31.0) H Mean Corpuscular Hemoglobin Concent 31.6 G/DL (32.0-36.0) L Red Cell Distribution Width 14.0 % (11.6-14.8) Platelet Count 380 K/UL (150-450) Mean Platelet Volume 7.1 FL (6.5-10.1) Neutrophils (%) (Auto) % (45.0-75.0) Lymphocytes (%) (Auto) % (20.0-45.0) Monocytes (%) (Auto) % (1.0-10.0) Eosinophils (%) (Auto) % (0.0-3.0) Basophils (%) (Auto) % (0.0-2.0) Coagulation Test 12/31/19 05:15 Prothrombin Time 11.9 SEC (9.30-11.50) H Prothromb Time International Ratio 1.1 (0.9-1.1) Activated Partial Thromboplast Time 29 SEC (23-33) Chemistry Test 12/31/19 05:15 Sodium Level 134 MMOL/L (136-145) L Potassium Level 4.4 MMOL/L (3.5-5.1) Chloride Level 101 MMOL/L (98-107) Carbon Dioxide Level 23 MMOL/L (21-32) Anion Gap 11 mmol/L (5-15) Blood Urea Nitrogen 12 mg/dL (7-18) Creatinine 1.0 MG/DL (0.55-1.30) Estimat Glomerular Filtration Rate > 60 mL/min (>60) Glucose Level 104 MG/DL (74-106) Calcium Level 8.2 MG/DL (8.5-10.1) L Total Bilirubin 0.8 MG/DL (0.2-1.0) Aspartate Amino Transf (AST/SGOT) 34 U/L (15-37) Alanine Aminotransferase (ALT/SGPT) 12 U/L (12-78) Alkaline Phosphatase 93 U/L (46-116) Total Protein 7.4 G/DL (6.4-8.2) Albumin 2.8 G/DL (3.4-5.0) L Globulin 4.6 g/dL Albumin/Globulin Ratio 0.6 (1.0-2.7) L Amylase Level 44 U/L (25-115) Lipase 74 U/L (73-393) Risk Assessment & Plan Assessment: ASA 4 Plan: MAC Status Change Before Surgery: Nigel Dupree MD Dec 31, 2019 13:55
--- NOTE | 2019-12-31 13:57 | Endoscopy Procedure Note ---
Endoscopy Procedure Note General Indication for Procedure: gib Procedures Performed: EGD Operative Findings/Diagnosis: gastritis Specimen: yes Pt Tolerated Procedure Well: Yes Estimated Blood Loss: none Anesthesia Anesthesiologist: maged Anesthesia: MAC Inserted Devices Implant(s) used?: No GI Core Measures 50 yrs or older w/o bx or poly: Not Applicable 10yrs. F/U recommended: Not Applicable Ha Jordan MD Dec 31, 2019 13:57
--- NOTE | 2019-12-31 14:09 | Immediate Post-Op Evaluation ---
Immediate Post-Op Evalulation Immediate Post-Op Evalulation Procedure: EGD with Bx Date of Evaluation: Dec 31, 2019 Time of Evaluation: 14:08 IV Fluids: 300 Blood Products: none Estimated Blood Loss: none Urinary Output: none Blood Pressure Systolic: 118 Blood Pressure Diastolic: 72 Pulse Rate: 88 Respiratory Rate: 22 O2 Sat by Pulse Oximetry: 99 Temperature (Fahrenheit): 98.7 Pain Score (1-10): 1 Nausea: No Vomiting: No Complications none Patient Status: awake, patent, none Hydration Status: adequate Nigel Gatica MD Dec 31, 2019 14:09
--- NOTE | 2019-12-31 16:04 | Pre-Procedure Note/Attestation ---
Pre-Procedure Note/Attestation Complete Prior to Procedure Planned Procedure: not applicable Procedure Narrative: paracentesis Indications for Procedure Pre-Operative Diagnosis: ascites Attestation I attest that I discussed the nature of the procedure; its benefits; risks and complications; and alternatives (and the risks and benefits of such alternatives ), prior to the procedure, with the patient (or the patient's legal applications sales representative). I attest that, if there was a reasonable possibility of needing a blood transfusion, the patient (or the patient's legal applications sales representative) was given the [facility] standardized written summary, pursuant to the Darci Josef Blood Safety Act ([place] Health and Safety Code # 1645, as amended). I attest that I re-evaluated the patient just prior to the surgery and that there has been no change in the patient's H&P, except as documented below: Pedro Pablo Augustin MD Dec 31, 2019 16:04
--- NOTE | 2019-12-31 16:05 | Brief Operative Note ---
Immediate Post Operative Note Operative Note Pre-op Diagnosis: ascites Procedure: paracentesis Surgeon: Wali Couch Anesthesia: local Specimen: yes - bloody fluid aspirated. 50 ml sent to lab Complications: none Fluids: none Implant(s) used?: No Pedro Pablo Couch MD Dec 31, 2019 16:05
--- NOTE | 2019-12-31 16:45 | Diagnostic Imaging Report ---
Indications: Ascites Technique: Ultrasound used to localize optimal puncture site. Sterile prepping and draping right lower pole. Local anesthesia with 1% lidocaine. Under real-time ultrasound guidance, puncture peritoneal space using paracentesis needle. Stylet removed. Catheter placed to vacuum bottle suction. Total 2.7 liters of grossly bloody fluid aspirated. Patient tolerated procedure well, without immediate complication. A specimen was sent to the lab Findings: Followup sonography demonstrates complete resolution of peritoneal fluid. Impression: Successful ultrasound-guided paracentesis, yielding 2.7 liters of grossly bloody fluid
--- NOTE | 2019-12-31 17:30 | Internal Med Progress Note ---
Subjective Physician Name Daniel Lange Attending Physician Daniel Lange MD Current Medications Medications (Trade) Dose Ordered Sig/Na Route PRN Reason Start Time Stop Time Status Last Admin Dose Admin Acetaminophen (Tylenol) 650 mg Q4H PRN ORAL fever 12/30/19 12:00 01/29/20 11:59 Acetaminophen/ Hydrocodone Bitart ([place] 5/325) 1 tab Q6H PRN ORAL For Pain 12/30/19 17:30 01/06/20 17:29 12/31/19 11:08 Barium Sulfate (Readi-Cat 2) 450 ml NOW PRN ORAL Radiology Procedure 12/30/19 17:15 01/01/20 17:08 Dextrose (Dextrose 50%) 25 ml Q30M PRN IV Hypoglycemia 12/30/19 12:00 03/29/20 11:59 Dextrose (Dextrose 50%) 50 ml Q30M PRN IV Hypoglycemia 12/30/19 12:00 03/29/20 11:59 Dextrose/Sodium Chloride 1,000 ml @ 100 mls/hr Q10H IV 12/30/19 11:54 01/29/20 11:53 12/31/19 11:11 Diphenhydramine HCl (Benadryl) 25 mg Q6H PRN ORAL Itching/Pruritis 12/30/19 12:00 01/29/20 11:59 Iohexol (OMNIPAQUE-300 100ml) 100 ml NOW PRN INJ Radiology Procedure 12/30/19 17:15 01/01/20 17:08 Nitroglycerin (Ntg) 0.4 mg Q5M X 3 DOSES PRN SL Prn Chest Pain 12/30/19 12:00 01/29/20 11:59 Ondansetron HCl (Zofran) 4 mg Q6H PRN IVP Nausea & Vomiting 12/30/19 12:00 01/29/20 11:59 12/31/19 11:09 Polyethylene Glycol (Miralax) 17 gm HSPRN PRN ORAL Constipation 12/30/19 12:00 01/29/20 11:59 Temazepam (Restoril) 15 mg HSPRN PRN ORAL Insomnia 12/30/19 12:00 01/06/20 11:59 Allergies: Coded Allergies: No Known Allergies (Unverified , 02/02/15) Subjective awake, alert, responsive, No Chest pain or SOB, S/P EGD: gastritis Objective Last Vital Signs Date Time Temp Pulse Resp B/P (MAP) Pulse Ox O2 Delivery O2 Flow Rate FiO2 12/31/19 16:29 97.1 99 20 123/67 (85) 100 12/31/19 14:45 Room Air 12/31/19 14:20 3 Laboratory Tests Test 12/31/19 05:15 12/31/19 15:30 White Blood Count 11.2 K/UL (4.8-10.8) H Red Blood Count 2.44 M/UL (4.70-6.10) L Hemoglobin 7.8 G/DL (14.2-18.0) L Hematocrit 24.7 % (42.0-52.0) L Mean Corpuscular Volume 101 FL (80-99) H Mean Corpuscular Hemoglobin 31.9 PG (27.0-31.0) H Mean Corpuscular Hemoglobin Concent 31.6 G/DL (32.0-36.0) L Red Cell Distribution Width 14.0 % (11.6-14.8) Platelet Count 380 K/UL (150-450) Mean Platelet Volume 7.1 FL (6.5-10.1) Neutrophils (%) (Auto) % (45.0-75.0) Lymphocytes (%) (Auto) % (20.0-45.0) Monocytes (%) (Auto) % (1.0-10.0) Eosinophils (%) (Auto) % (0.0-3.0) Basophils (%) (Auto) % (0.0-2.0) Prothrombin Time 11.9 SEC (9.30-11.50) H Prothromb Time International Ratio 1.1 (0.9-1.1) Activated Partial Thromboplast Time 29 SEC (23-33) Sodium Level 134 MMOL/L (136-145) L Potassium Level 4.4 MMOL/L (3.5-5.1) Chloride Level 101 MMOL/L (98-107) Carbon Dioxide Level 23 MMOL/L (21-32) Anion Gap 11 mmol/L (5-15) Blood Urea Nitrogen 12 mg/dL (7-18) Creatinine 1.0 MG/DL (0.55-1.30) Estimat Glomerular Filtration Rate > 60 mL/min (>60) Glucose Level 104 MG/DL (74-106) Calcium Level 8.2 MG/DL (8.5-10.1) L Total Bilirubin 0.8 MG/DL (0.2-1.0) Aspartate Amino Transf (AST/SGOT) 34 U/L (15-37) Alanine Aminotransferase (ALT/SGPT) 12 U/L (12-78) Alkaline Phosphatase 93 U/L (46-116) Total Protein 7.4 G/DL (6.4-8.2) Albumin 2.8 G/DL (3.4-5.0) L Globulin 4.6 g/dL Albumin/Globulin Ratio 0.6 (1.0-2.7) L Amylase Level 44 U/L (25-115) Lipase 74 U/L (73-393) Alpha Fetoprotein Pending Body Fluid Source Pending Body Fluid Volume Pending Body Fluid Appearance Pending Body Fluid RBC Pending Body Fluid Total Nucleated Cells Pending Body Fluid Glucose Pending Body Fluid Total Protein Pending Body Fluid Albumin Pending Microbiology Date/Time Source Procedure Growth Status 12/31/19 07:00 Nasopharynx SARS-CoV-2 RdRp Gene Assay - Final Complete Intake and Output 12/30/19 12/31/19 19:00 07:00 Intake Total 390 ml 500 ml Output Total 0 ml Balance 390 ml 500 ml Intake IV Total 390 ml 500 ml Output Urine Total 0 ml # Voids 1 Objective GENERAL: Patient is a well-developed, male, in no apparent distress. HEENT: Eyes, pupils equal and responsive to light and accommodation. Extraocular movements are intact. NECK: Supple. No lymphadenopathy. CHEST: Lungs are clear to auscultation bilaterally without wheezes or rales. CARDIOVASCULAR: Regular rhythm and rate. S1, S2 are normal without murmurs, rubs, or gallops. ABDOMEN: Soft, nontender, and less distended. Positive bowel sounds. Currently no rebound or guarding noted. EXTREMITIES: Negative for clubbing, cyanosis, or edema. RECTAL/GENITAL: Exams are not performed. NEUROLOGICAL: Cranial nerves II through XII are grossly intact without focal deficits. Motor strength is 5/5 bilaterally. Assessment/Plan Assessment/Plan ASSESSMENT: This is a 74-year-old male. 1. Melena. 2. Suprapubic pain. 3. Hypertension. 4. History of hepatocellular carcinoma. 5. Hepatitic C positive. 6. Anemia. 7. Ascites S/P paracentesis with 2.7 liters of grossly bloody fluid (12/31/2019). 8. History of Duodenal Ulcer. TREATMENT: 1. Melena/suprapubic pain. A gastroenterology consultation is obtained with Dr. Aureliano Lester. Patient has a history of gastrointestinal hemorrhage. EGD (12/31/2019): Gastritis. 2. Anemia. This is probably secondary to acute blood loss secondary to acute gastrointestinal hemorrhage. 3. Hypertension. Continue amlodipine as above. 4. History of hepatocellular carcinoma. F/u with GI recommendation monitor Labs Full code DVT prophylax: SCD Daniel Lange MD Dec 31, 2019 17:30
--- NOTE | 2019-12-31 19:00 | Procedure Note ---
DATE OF PROCEDURE: 12/31/2019 SURGEON: Ha Jordan MD. REFERRING PHYSICIAN: Daniel Lange MD. PROCEDURE: Upper endoscopy with biopsy. ANESTHESIA: Per Dr. Gatica. INSTRUMENT: Olympus adult flexible upper endoscope. INDICATION: Upper GI bleeding. The procedure, risks, benefits, and possible consequences, including hemorrhage, aspiration, perforation and infection, and alternative treatments, were explained to the patient/legal guardian by Dr. Ha Jordan and the patient/legal guardian understood and accepted these risks. DESCRIPTION OF PROCEDURE: After informed consent was obtained and the patient was adequately sedated, Olympus upper endoscope was advanced from the mouth to the second portion of the duodenum and retroflexion was performed in the stomach. The patient had 1 very short column of esophageal varices not amenable to banding at this time. This varies was short, only 1 short column and not without any stigmata. There was no evidence of any gastric varices. In the stomach, there was diffuse gastritis. Random biopsy from antrum was obtained to rule out H. pylori infection. There were few shallow duodenal erosions in the duodenal bulb. There was also 1 evidence of duodenal diverticulum. At this time, the upper endoscope was retrieved and the procedure was terminated. SUMMARY OF FINDINGS: 1. One column of very short column of esophageal varices without any stigmata, not amenable to banding at this time. 2. No gastric varices. 3. Gastritis, status post biopsy. 4. Duodenal diverticulum. 5. Few duodenal erosions. RECOMMENDATIONS: Follow up biopsy results and treat accordingly. Order paracentesis given large ascites. Monitor labs. Transfuse as needed. I want to thank, Dr. Daniel Lange, for this kind referral. Ha Jordan M.D. DR: Caridad JOB#: [id number] CC: Daniel Lange MD; Fax#: [phone]
--- NOTE | 2019-12-31 22:13 | General Progress Note ---
Assessment/Plan Assessment/Plan: Assessment - h/o Hepatitis C - eradicated in 2014 - Cirrhosis - h/o hepatocellular carcinoma - s/p microwave ablation 2016, negative surveillance, last 03/2019 - h/o Duodenal ulcer 01/2015 - anemia, - H&H , 01/2019 - Dark stools--> gastritis per EGD Recommendations - PO diet - PPI - OOB - outpatient GI f/u Subjective Allergies: Coded Allergies: No Known Allergies (Unverified , 02/02/15) Subjective Above noted s/p EGD --> gastritis no vomiting Objective Last 24 Hour Vital Signs Date Time Temp Pulse Resp B/P (MAP) Pulse Ox O2 Delivery O2 Flow Rate FiO2 12/31/19 21:00 Room Air 12/31/19 20:00 98.1 97 20 101/51 (68) 99 12/31/19 20:00 103 12/31/19 16:29 97.1 99 20 123/67 (85) 100 12/31/19 15:34 99 12/31/19 14:45 97.2 94 23 117/68 100 Room Air 12/31/19 14:30 94 21 116/73 100 Room Air 12/31/19 14:20 97 28 118/67 100 Nasal Cannula 3 12/31/19 14:10 94 26 116/70 100 Nasal Cannula 3 12/31/19 14:09 88 22 99 12/31/19 14:05 94 26 115/75 100 Nasal Cannula 3 12/31/19 14:03 99.8 96 24 118/70 100 Nasal Cannula 3 12/31/19 12:00 97.8 95 22 124/73 (90) 100 12/31/19 11:48 98.1 12/31/19 11:47 91 12/31/19 08:25 98.1 93 18 110/62 (78) 97 12/31/19 08:23 Room Air 12/31/19 07:41 88 12/31/19 04:00 97 12/31/19 04:00 97.7 91 18 104/69 (81) 97 12/31/19 00:00 89 12/31/19 00:00 98.1 94 18 119/65 (83) 98 Intake and Output 12/30/19 12/31/19 19:00 07:00 Intake Total 390 ml 500 ml Output Total 0 ml Balance 390 ml 500 ml IV Total 390 ml 500 ml Output Urine Total 0 ml # Voids 1 Laboratory Tests 12/31/19 05:15: White Blood Count 11.2H, Red Blood Count 2.44L, Hemoglobin 7.8L, Hematocrit 24.7L, Mean Corpuscular Volume 101H, Mean Corpuscular Hemoglobin 31.9H, Mean Corpuscular Hemoglobin Concent 31.6L, Red Cell Distribution Width 14.0, Platelet Count 380, Mean Platelet Volume 7.1, Neutrophils (%) (Auto) , Lymphocytes (%) (Auto) , Monocytes (%) (Auto) , Eosinophils (%) (Auto) , Basophils (%) (Auto) , Prothrombin Time 11.9H, Prothromb Time International Ratio 1.1, Activated Partial Thromboplast Time 29, Sodium Level 134L, Potassium Level 4.4, Chloride Level 101, Carbon Dioxide Level 23, Anion Gap 11, Blood Urea Nitrogen 12, Creatinine 1.0, Estimat Glomerular Filtration Rate > 60, Glucose Level 104, Calcium Level 8.2L, Total Bilirubin 0.8, Aspartate Amino Transf (AST/SGOT) 34, Alanine Aminotransferase (ALT/SGPT) 12, Alkaline Phosphatase 93, Total Protein 7.4, Albumin 2.8L, Globulin 4.6, Albumin/Globulin Ratio 0.6L, Amylase Level 44, Lipase 74, Alpha Fetoprotein [Pending] 12/31/19 15:30: Body Fluid Source [Pending], Body Fluid Volume [Pending], Body Fluid Appearance [Pending], Body Fluid RBC [Pending], Body Fluid Total Nucleated Cells [Pending] , Body Fluid Glucose [Pending], Body Fluid Total Protein [Pending], Body Fluid Albumin [Pending] Height (Feet): 6 Height (Inches): 5.00 Weight (Pounds): 177 Objective WDWN AA man NCAT supple CTA RRR Abd soft NT no edema Aureliano Lester MD Dec 31, 2019 22:13
[2020-01-01] VITALS: BP 121/63
[2020-01-01 04:00] VITALS: BP 130/61
[2020-01-01] MEDS: D5NS 1,000 ML IV SCH ×3 (04:47→20:47)
[2020-01-01 05:54] LABS: HEMATOCRIT 22.7 % (42.0-52.0); MEAN CORPUSCULAR VOLUME 103 FL (80-99); PLATELET COUNT 324 K/UL (150-450); RED BLOOD COUNT 2.21 M/UL (4.70-6.10); RED CELL DISTRIBUTION WIDTH 14.3 % (11.6-14.8); WHITE BLOOD COUNT 11.1 K/UL (4.8-10.8)
[2020-01-01 06:11] LABS: ALANINE AMINOTRANSFERASE 14 U/L (12-78); ALBUMIN 2.4 G/DL (3.4-5.0); ALBUMIN/GLOBULIN RATIO 0.6 (1.0-2.7); ALKALINE PHOSPHATASE 83 U/L (46-116); ANION GAP 11 mmol/L (5-15); ASPARTATE AMINO TRANSFERASE 29 U/L (15-37); BILIRUBIN,TOTAL 0.6 MG/DL (0.2-1.0); BLOOD UREA NITROGEN 8 mg/dL (7-18); CALCIUM 7.7 MG/DL (8.5-10.1); CARBON DIOXIDE 21 MMOL/L (21-32); CHLORIDE 105 MMOL/L (98-107); CREATININE 0.9 MG/DL (0.55-1.30); PHOSPHORUS 2.9 MG/DL (2.5-4.9); POTASSIUM 4.5 MMOL/L (3.5-5.1); SODIUM 137 MMOL/L (136-145)
--- NOTE | 2020-01-01 07:24 | Pulmonology Progress Note ---
Subjective ROS Limited/Unobtainable: No Constitutional: Reports: no symptoms HEENT: Repors: no symptoms Respiratory: Reports: no symptoms Cardiovascular: Reports: no symptoms Gastrointestinal/Abdominal: Reports: no symptoms Genitourinary: Reports: no symptoms Allergies: Coded Allergies: No Known Allergies (Unverified , 02/02/15) Subjective denies SOB,pulse ox stable on RA no CP Hgb down to 7 this am mild leukocytosis, no fevers Objective Last 24 Hour Vital Signs Date Time Temp Pulse Resp B/P (MAP) Pulse Ox O2 Delivery O2 Flow Rate FiO2 01/01/20 04:00 97.7 101 19 130/61 (84) 100 01/01/20 04:00 Room Air 01/01/20 04:00 89 01/01/20 00:00 94 01/01/20 00:00 97.5 118 21 121/63 (82) 100 01/01/20 00:00 Room Air 01/01/20 00:00 96 12/31/19 23:36 104 12/31/19 21:00 Room Air 12/31/19 20:00 98.1 97 20 101/51 (68) 99 12/31/19 20:00 103 12/31/19 16:29 97.1 99 20 123/67 (85) 100 12/31/19 15:34 99 12/31/19 14:45 97.2 94 23 117/68 100 Room Air 12/31/19 14:30 94 21 116/73 100 Room Air 12/31/19 14:20 97 28 118/67 100 Nasal Cannula 3 12/31/19 14:10 94 26 116/70 100 Nasal Cannula 3 12/31/19 14:09 88 22 99 12/31/19 14:05 94 26 115/75 100 Nasal Cannula 3 12/31/19 14:03 99.8 96 24 118/70 100 Nasal Cannula 3 12/31/19 12:00 97.8 95 22 124/73 (90) 100 12/31/19 11:48 98.1 12/31/19 11:47 91 12/31/19 08:25 98.1 93 18 110/62 (78) 97 12/31/19 08:23 Room Air 12/31/19 07:41 88 Intake and Output 12/31/19 01/01/20 19:00 07:00 Intake Total 700 ml 1580 ml Balance 700 ml 1580 ml Intake Oral 250 ml 480 ml IV Total 450 ml 1100 ml # Voids 3 General Appearance: other - thin AA male in NAD HEENT: normocephalic, atraumatic Respiratory: chest wall non-tender, lungs clear Cardiovascular: normal peripheral pulses, normal rate, regular rhythm - SR with occ PVC on tele Abdomen: normal bowel sounds, soft, non tender Neurologic: photograph finisher II-XII grossly normal, alert, oriented x 3, responsive Musculoskeletal: normal muscle bulk Microbiology Date/Time Source Procedure Growth Status 12/31/19 15:30 Ascities Fluid Gram Stain - Final Resulted 12/31/19 15:30 Ascities Fluid Body Fluid Culture - Preliminary NO GROWTH Resulted 12/31/19 07:00 Nasopharynx SARS-CoV-2 RdRp Gene Assay - Final Complete Laboratory Tests 12/31/19 15:30: Body Fluid Source Paracentesis, Body Fluid Volume 24, Body Fluid Appearance Bloody, Body Fluid RBC [id number], Body Fluid Total Nucleated Cells 18495, Body Fluid Polynuclear WBCs (%) 67, Body Fluid Mononuclear WBCs (%) 2, Body Fluid Mesothelial Cells (%) 31, Body Fluid Glucose [Pending], Body Fluid Total Protein [Pending], Body Fluid Albumin [Pending] 01/01/20 05:25: White Blood Count 11.1H, Red Blood Count 2.21L, Hemoglobin 7.0L, Hematocrit 22.7L, Mean Corpuscular Volume 103H, Mean Corpuscular Hemoglobin 31.8H, Mean Corpuscular Hemoglobin Concent 31.0L, Red Cell Distribution Width 14.3, Platelet Count 324, Mean Platelet Volume 7.2, Neutrophils (%) (Auto) , Lymphocytes (%) (Auto) , Monocytes (%) (Auto) , Eosinophils (%) (Auto) , Basophils (%) (Auto) , Neutrophils % (Manual) [Pending], Lymphocytes % (Manual) [Pending], Platelet Estimate [Pending], Platelet Morphology [Pending], Sodium Level 137, Potassium Level 4.5, Chloride Level 105, Carbon Dioxide Level 21, Anion Gap 11, Blood Urea Nitrogen 8, Creatinine 0.9, Estimat Glomerular Filtration Rate > 60, Glucose Level 114H, Calcium Level 7.7L, Phosphorus Level 2.9, Magnesium Level 1.9, Total Bilirubin 0.6, Aspartate Amino Transf (AST/SGOT ) 29, Alanine Aminotransferase (ALT/SGPT) 14, Alkaline Phosphatase 83, Total Protein 6.4, Albumin 2.4L, Globulin 4.0, Albumin/Globulin Ratio 0.6L Current Medications Medications (Trade) Dose Ordered Sig/Na Route PRN Reason Start Time Stop Time Status Last Admin Dose Admin Acetaminophen (Tylenol) 650 mg Q4H PRN ORAL fever 12/30/19 12:00 01/29/20 11:59 Acetaminophen/ Hydrocodone Bitart ([place] 5/325) 1 tab Q6H PRN ORAL For Pain 12/30/19 17:30 01/06/20 17:29 12/31/19 11:08 Barium Sulfate (Readi-Cat 2) 450 ml NOW PRN ORAL Radiology Procedure 12/30/19 17:15 01/01/20 17:08 Dextrose (Dextrose 50%) 25 ml Q30M PRN IV Hypoglycemia 12/30/19 12:00 03/29/20 11:59 Dextrose (Dextrose 50%) 50 ml Q30M PRN IV Hypoglycemia 12/30/19 12:00 03/29/20 11:59 Dextrose/Sodium Chloride 1,000 ml @ 100 mls/hr Q10H IV 12/30/19 11:54 01/29/20 11:53 01/01/20 04:47 Diphenhydramine HCl (Benadryl) 25 mg Q6H PRN ORAL Itching/Pruritis 12/30/19 12:00 01/29/20 11:59 Iohexol (OMNIPAQUE-300 100ml) 100 ml NOW PRN INJ Radiology Procedure 12/30/19 17:15 01/01/20 17:08 Nitroglycerin (Ntg) 0.4 mg Q5M X 3 DOSES PRN SL Prn Chest Pain 12/30/19 12:00 01/29/20 11:59 Ondansetron HCl (Zofran) 4 mg Q6H PRN IVP Nausea & Vomiting 12/30/19 12:00 01/29/20 11:59 12/31/19 11:09 Polyethylene Glycol (Miralax) 17 gm HSPRN PRN ORAL Constipation 12/30/19 12:00 01/29/20 11:59 Temazepam (Restoril) 15 mg HSPRN PRN ORAL Insomnia 12/30/19 12:00 01/06/20 11:59 Assessment/Plan Assessment/Plan ASSESSMENT Probably GI bleeding Hepatocellular carcinoma Cirrhosis Ascites Status post paracentesis History of hep C status post treatment History of duodenal ulcer Anemia Hypertension PLAN OF CARE tele O2 prn titrate to keep sat > 92 %, pulm toilet NPO IVF PPI s/p EGD -> gastritis, f/up with patho results pain managements s/p paracentesis, fup with cytology , fluid analysis noted fluid cx NGTD CT A/P pending LFT stable AFP pending monitor H&H with goal to keep Hgb> 7 give 1 u of PRBC stool OB pain management bowel regimen supportive care case discussed and evaluated by supervising physician Reyna Valencia NP Jan 01, 2020 07:24
[2020-01-01 08:00] VITALS: BP 119/57
--- NOTE | 2020-01-01 08:38 | 48 Hour Post Anesthesia Eval ---
Post Anesthesia Evaluation Procedure: EGD with Bx Date of Evaluation: Jan 01, 2020 Time of Evaluation: 08:37 Blood Pressure Systolic: 132 0: 76 Pulse Rate: 84 Respiratory Rate: 22 Temperature (Fahrenheit): 97.6 O2 Sat by Pulse Oximetry: 98 Airway: patent Nausea: No Vomiting: No Pain Intensity: 1 Hydration Status: adequate Cardiopulmonary Status: stable Mental Status/LOC: patient returned to baseline Follow-up Care/Observations: n/a Post-Anesthesia Complications: none Follow-up care needed: N/A Nigel Gatica MD Jan 01, 2020 08:38
[2020-01-01] MEDS: HYDROcodone/Acetamin 5/325 tab ORAL PRN (11:43)
[2020-01-01 12:00] VITALS: BP 121/88
--- NOTE | 2020-01-01 13:31 | Internal Med Progress Note ---
Subjective Date of Service: Jan 01, 2020 Physician Name MarielaSlade Attending Physician Daniel Lange MD Current Medications Medications (Trade) Dose Ordered Sig/Na Route PRN Reason Start Time Stop Time Status Last Admin Dose Admin Acetaminophen (Tylenol) 650 mg Q4H PRN ORAL fever 12/30/19 12:00 01/29/20 11:59 Acetaminophen/ Hydrocodone Bitart ([place] 5/325) 1 tab Q6H PRN ORAL For Pain 12/30/19 17:30 01/06/20 17:29 01/01/20 11:43 Barium Sulfate (Readi-Cat 2) 450 ml NOW PRN ORAL Radiology Procedure 12/30/19 17:15 01/01/20 17:08 Dextrose (Dextrose 50%) 25 ml Q30M PRN IV Hypoglycemia 12/30/19 12:00 03/29/20 11:59 Dextrose (Dextrose 50%) 50 ml Q30M PRN IV Hypoglycemia 12/30/19 12:00 03/29/20 11:59 Dextrose/Sodium Chloride 1,000 ml @ 100 mls/hr Q10H IV 12/30/19 11:54 01/29/20 11:53 01/01/20 04:47 Diphenhydramine HCl (Benadryl) 25 mg Q6H PRN ORAL Itching/Pruritis 12/30/19 12:00 01/29/20 11:59 Iohexol (OMNIPAQUE-300 100ml) 100 ml NOW PRN INJ Radiology Procedure 12/30/19 17:15 01/01/20 17:08 Nitroglycerin (Ntg) 0.4 mg Q5M X 3 DOSES PRN SL Prn Chest Pain 12/30/19 12:00 01/29/20 11:59 Ondansetron HCl (Zofran) 4 mg Q6H PRN IVP Nausea & Vomiting 12/30/19 12:00 01/29/20 11:59 12/31/19 11:09 Polyethylene Glycol (Miralax) 17 gm HSPRN PRN ORAL Constipation 12/30/19 12:00 01/29/20 11:59 Temazepam (Restoril) 15 mg HSPRN PRN ORAL Insomnia 12/30/19 12:00 01/06/20 11:59 Allergies: Coded Allergies: No Known Allergies (Unverified , 02/02/15) ROS Limited/Unobtainable: No Constitutional: Reports: no symptoms HEENT: Reports: no symptoms Cardiovascular: Reports: no symptoms Respiratory: Reports: no symptoms Gastrointestinal/Abdominal: Reports: black stools Genitourinary: Reports: no symptoms Neurologic/Psychiatric: Reports: no symptoms Subjective 74 YO M admitted with gastrointestinal hemorrhage. S/P endoscopy 12/31/19. Cover for Int Reji-Dr Lange. Objective Last Vital Signs Date Time Temp Pulse Resp B/P (MAP) Pulse Ox O2 Delivery O2 Flow Rate FiO2 01/01/20 08:38 84 22 98 01/01/20 08:00 97.5 119/57 (77) 01/01/20 04:00 Room Air 12/31/19 14:20 3 Laboratory Tests Test 12/31/19 15:30 01/01/20 05:25 Body Fluid Source Paracentesis Body Fluid Volume 24 mL Body Fluid Appearance Bloody (Clear) Body Fluid RBC [id number] /CUMM Body Fluid Total Nucleated Cells 12527 /CUMM Body Fluid Polynuclear WBCs (%) 67 % Body Fluid Mononuclear WBCs (%) 2 % Body Fluid Mesothelial Cells (%) 31 % Body Fluid Glucose 116 mg/dL (.) Body Fluid Total Protein 4.2 g/dL (.) Body Fluid Albumin Pending White Blood Count 11.1 K/UL (4.8-10.8) H Red Blood Count 2.21 M/UL (4.70-6.10) L Hemoglobin 7.0 G/DL (14.2-18.0) L Hematocrit 22.7 % (42.0-52.0) L Mean Corpuscular Volume 103 FL (80-99) H Mean Corpuscular Hemoglobin 31.8 PG (27.0-31.0) H Mean Corpuscular Hemoglobin Concent 31.0 G/DL (32.0-36.0) L Red Cell Distribution Width 14.3 % (11.6-14.8) Platelet Count 324 K/UL (150-450) Mean Platelet Volume 7.2 FL (6.5-10.1) Neutrophils (%) (Auto) % (45.0-75.0) Lymphocytes (%) (Auto) % (20.0-45.0) Monocytes (%) (Auto) % (1.0-10.0) Eosinophils (%) (Auto) % (0.0-3.0) Basophils (%) (Auto) % (0.0-2.0) Differential Total Cells Counted 100 Neutrophils % (Manual) 85 % (45-75) H Lymphocytes % (Manual) 9 % (20-45) L Monocytes % (Manual) 6 % (1-10) Eosinophils % (Manual) 0 % (0-3) Basophils % (Manual) 0 % (0-2) Band Neutrophils 0 % (0-8) Platelet Estimate Adequate Platelet Morphology Normal Polychromasia 1+ Hypochromasia 1+ Anisocytosis 1+ Macrocytosis 1+ Sodium Level 137 MMOL/L (136-145) Potassium Level 4.5 MMOL/L (3.5-5.1) Chloride Level 105 MMOL/L (98-107) Carbon Dioxide Level 21 MMOL/L (21-32) Anion Gap 11 mmol/L (5-15) Blood Urea Nitrogen 8 mg/dL (7-18) Creatinine 0.9 MG/DL (0.55-1.30) Estimat Glomerular Filtration Rate > 60 mL/min (>60) Glucose Level 114 MG/DL (74-106) H Calcium Level 7.7 MG/DL (8.5-10.1) L Phosphorus Level 2.9 MG/DL (2.5-4.9) Magnesium Level 1.9 MG/DL (1.8-2.4) Total Bilirubin 0.6 MG/DL (0.2-1.0) Aspartate Amino Transf (AST/SGOT) 29 U/L (15-37) Alanine Aminotransferase (ALT/SGPT) 14 U/L (12-78) Alkaline Phosphatase 83 U/L (46-116) Total Protein 6.4 G/DL (6.4-8.2) Albumin 2.4 G/DL (3.4-5.0) L Globulin 4.0 g/dL Albumin/Globulin Ratio 0.6 (1.0-2.7) L Microbiology Date/Time Source Procedure Growth Status 12/31/19 15:30 Ascities Fluid Gram Stain - Final Resulted 12/31/19 15:30 Ascities Fluid Body Fluid Culture - Preliminary NO GROWTH Resulted 12/31/19 07:00 Nasopharynx SARS-CoV-2 RdRp Gene Assay - Final Complete Intake and Output 12/31/19 01/01/20 19:00 07:00 Intake Total 700 ml 1580 ml Balance 700 ml 1580 ml Intake Oral 250 ml 480 ml IV Total 450 ml 1100 ml # Voids 3 Objective PHYSICAL EXAMINATION: GENERAL: Patient is a well-developed, well-nourished male, in no apparent distress. HEENT: Eyes, pupils equal and responsive to light and accommodation. Extraocular movements are intact. NECK: Supple. No lymphadenopathy. CHEST: Lungs are clear to auscultation bilaterally without wheezes or rales. CARDIOVASCULAR: Regular rhythm and rate. S1, S2 are normal without murmurs, rubs, or gallops. ABDOMEN: Soft, nontender, and nondistended. Positive bowel sounds. No evidence of hepatosplenomegaly. Currently no rebound or guarding noted. EXTREMITIES: Negative for clubbing, cyanosis, or edema. RECTAL/GENITAL: Exams are not performed. NEUROLOGICAL: Cranial nerves II through XII are grossly intact without focal deficits. Motor strength is 5/5 bilaterally. Deep tendon reflexes are 2+, plantar. Assessment/Plan Assessment/Plan ASSESSMENT: This is a 74-year-old male. 1. Melena. 2. Suprapubic pain. 3. Hypertension. 4. History of hepatocellular carcinoma. 5. Hepatitis C 6. Cirrhosis of the liver 7. Gastritis TREATMENT: 1. Melena/suprapubic pain. A gastroenterology consultation is obtained with Dr. Aureliano Lester. Patient has a history of gastrointestinal hemorrhage. An endoscopy on 12/31/19=gastritis. Start protonix 40 mg BID and carafate 1 gm QID. We will follow recommendations of Gastroenterology. 2. Anemia. This is probably secondary to acute blood loss secondary to acute gastrointestinal hemorrhage. Transfuse 1 unit PRBC 01/01/20. 3. Hypertension. Continue amlodipine as above. 4. History of hepatocellular carcinoma. A CT scan of the abdomen and pelvis is scheduled for 01/01/20 Slade Sierra MD Jan 01, 2020 13:31
[2020-01-01 16:00] VITALS: BP 108/62
[2020-01-01] MEDS: Sucralfate 1gm tab ORAL SCH ×2 (17:42→20:46)
[2020-01-01 18:15] LABS: BASOPHILS % (AUTO) 1.3 % (0.0-2.0); EOSINOPHILS % (AUTO) 0.4 % (0.0-3.0); HEMATOCRIT 28.3 % (42.0-52.0); HEMOGLOBIN 8.9 G/DL (14.2-18.0); LYMPHOCYTES % (AUTO) 8.1 % (20.0-45.0); MEAN CORPUSCULAR VOLUME 98 FL (80-99); NEUTROPHILS % (AUTO) 82.3 % (45.0-75.0); PLATELET COUNT 396 K/UL (150-450); RED BLOOD COUNT 2.89 M/UL (4.70-6.10); RED CELL DISTRIBUTION WIDTH 16.6 % (11.6-14.8)
[2020-01-01 20:00] VITALS: BP 119/66
[2020-01-02] VITALS: BP 135/74
[2020-01-02 04:00] VITALS: BP 131/70
[2020-01-02 06:21] LABS: BASOPHILS % (AUTO) 0.5 % (0.0-2.0); EOSINOPHILS % (AUTO) 0.2 % (0.0-3.0); HEMATOCRIT 26.9 % (42.0-52.0); HEMOGLOBIN 8.6 G/DL (14.2-18.0); LYMPHOCYTES % (AUTO) 6.3 % (20.0-45.0); MEAN CORPUSCULAR VOLUME 99 FL (80-99); MONOCYTES % (AUTO) 8.7 % (1.0-10.0); NEUTROPHILS % (AUTO) 84.3 % (45.0-75.0); PLATELET COUNT 334 K/UL (150-450); RED BLOOD COUNT 2.72 M/UL (4.70-6.10); RED CELL DISTRIBUTION WIDTH 16.1 % (11.6-14.8)
[2020-01-02 06:46] LABS: ALANINE AMINOTRANSFERASE 15 U/L (12-78); ALBUMIN 2.5 G/DL (3.4-5.0); ALBUMIN/GLOBULIN RATIO 0.6 (1.0-2.7); ALKALINE PHOSPHATASE 90 U/L (46-116); ANION GAP 9 mmol/L (5-15); ASPARTATE AMINO TRANSFERASE 33 U/L (15-37); BLOOD UREA NITROGEN 5 mg/dL (7-18); CARBON DIOXIDE 23 MMOL/L (21-32); CHLORIDE 104 MMOL/L (98-107); CREATININE 0.9 MG/DL (0.55-1.30); POTASSIUM 4.4 MMOL/L (3.5-5.1); SODIUM 136 MMOL/L (136-145)
--- NOTE | 2020-01-02 07:48 | Pulmonology Progress Note ---
Subjective ROS Limited/Unobtainable: No Allergies: Coded Allergies: No Known Allergies (Unverified , 02/02/15) Subjective denies SOB,pulse ox stable on RA no CP rapid COVID resting NGT s/p 1 u PRBC 12/31 mild leukocytosis, no fevers + nausea, no vomiting, occasional abd pain still NPO CT A/P pending Objective Last 24 Hour Vital Signs Date Time Temp Pulse Resp B/P (MAP) Pulse Ox O2 Delivery O2 Flow Rate FiO2 01/02/20 04:00 98.2 98 19 131/70 (90) 100 01/02/20 04:00 92 01/02/20 01:30 98.3 01/02/20 01:20 98.1 01/02/20 00:00 103 01/02/20 00:00 100.3 100 19 135/74 (94) 100 01/01/20 21:00 Room Air 01/01/20 20:00 98.4 98 18 119/66 (83) 100 01/01/20 20:00 109 01/01/20 18:05 94 01/01/20 16:00 96 01/01/20 16:00 99.0 89 18 108/62 (77) 100 01/01/20 12:00 97.7 90 20 121/88 (99) 98 01/01/20 12:00 90 01/01/20 09:00 Room Air 01/01/20 08:38 84 22 98 01/01/20 08:00 97.5 95 18 119/57 (77) 97 01/01/20 08:00 91 Intake and Output 01/01/20 01/02/20 19:00 07:00 Intake Total 240 ml Balance 240 ml Intake Oral 240 ml # Voids 2 2 General Appearance: other - thin AA male in NAD HEENT: normocephalic, atraumatic Respiratory: chest wall non-tender, lungs clear Cardiovascular: normal peripheral pulses, normal rate, regular rhythm - SR with occ PVC on tele Abdomen: normal bowel sounds, soft, non tender Neurologic: trial management associate II-XII grossly normal, alert, oriented x 3, responsive Musculoskeletal: normal muscle bulk Microbiology Date/Time Source Procedure Growth Status 12/31/19 15:30 Ascities Fluid Gram Stain - Final Resulted 12/31/19 15:30 Ascities Fluid Body Fluid Culture - Preliminary NO GROWTH AFTER 24 HOURS Resulted 12/31/19 07:00 Nasopharynx SARS-CoV-2 RdRp Gene Assay - Final Complete Laboratory Tests 01/01/20 17:57: White Blood Count 13.0H, Red Blood Count 2.89L, Hemoglobin 8.9L, Hematocrit 28.3L, Mean Corpuscular Volume 98, Mean Corpuscular Hemoglobin 31.0, Mean Corpuscular Hemoglobin Concent 31.5L, Red Cell Distribution Width 16.6H, Platelet Count 396, Mean Platelet Volume 7.0, Neutrophils (%) (Auto) 82.3H, Lymphocytes (%) (Auto) 8.1L, Monocytes (%) (Auto) 8.0, Eosinophils (%) (Auto) 0.4, Basophils (%) (Auto) 1.3 01/02/20 05:50: White Blood Count 11.0H, Red Blood Count 2.72L, Hemoglobin 8.6L, Hematocrit 26.9L, Mean Corpuscular Volume 99, Mean Corpuscular Hemoglobin 31.5H, Mean Corpuscular Hemoglobin Concent 31.9L, Red Cell Distribution Width 16.1H, Platelet Count 334, Mean Platelet Volume 6.8, Neutrophils (%) (Auto) 84.3H, Lymphocytes (%) (Auto) 6.3L, Monocytes (%) (Auto) 8.7, Eosinophils (%) (Auto) 0.2, Basophils (%) (Auto) 0.5, Sodium Level 136, Potassium Level 4.4, Chloride Level 104, Carbon Dioxide Level 23, Anion Gap 9, Blood Urea Nitrogen 5L, Creatinine 0.9, Estimat Glomerular Filtration Rate > 60, Glucose Level 122H, Calcium Level 8.0L, Phosphorus Level 3.0, Magnesium Level 1.9, Total Bilirubin 1.0, Aspartate Amino Transf (AST/SGOT) 33, Alanine Aminotransferase (ALT/SGPT) 15, Alkaline Phosphatase 90, Total Protein 6.6, Albumin 2.5L, Globulin 4.1, Albumin/Globulin Ratio 0.6L Current Medications Medications (Trade) Dose Ordered Sig/Na Route PRN Reason Start Time Stop Time Status Last Admin Dose Admin Acetaminophen (Tylenol) 650 mg Q4H PRN ORAL fever 12/30/19 12:00 01/29/20 11:59 01/02/20 00:50 Acetaminophen/ Hydrocodone Bitart ([place] 5/325) 1 tab Q6H PRN ORAL For Pain 12/30/19 17:30 01/06/20 17:29 01/01/20 11:43 Dextrose (Dextrose 50%) 25 ml Q30M PRN IV Hypoglycemia 12/30/19 12:00 03/29/20 11:59 Dextrose (Dextrose 50%) 50 ml Q30M PRN IV Hypoglycemia 12/30/19 12:00 03/29/20 11:59 Dextrose/Sodium Chloride 1,000 ml @ 100 mls/hr Q10H IV 12/30/19 11:54 01/29/20 11:53 01/01/20 20:47 Diphenhydramine HCl (Benadryl) 25 mg Q6H PRN ORAL Itching/Pruritis 12/30/19 12:00 01/29/20 11:59 Nitroglycerin (Ntg) 0.4 mg Q5M X 3 DOSES PRN SL Prn Chest Pain 12/30/19 12:00 01/29/20 11:59 Ondansetron HCl (Zofran) 4 mg Q6H PRN IVP Nausea & Vomiting 12/30/19 12:00 01/29/20 11:59 12/31/19 11:09 Pantoprazole (Protonix) 40 mg EVERY 12 HOURS ORAL 01/01/20 13:15 01/31/20 13:14 01/01/20 20:46 Polyethylene Glycol (Miralax) 17 gm HSPRN PRN ORAL Constipation 12/30/19 12:00 01/29/20 11:59 Sucralfate (Carafate) 1 gm FOUR TIMES A DAY ORAL 01/01/20 18:00 03/31/20 17:59 01/01/20 20:46 Temazepam (Restoril) 15 mg HSPRN PRN ORAL Insomnia 12/30/19 12:00 01/06/20 11:59 Assessment/Plan Assessment/Plan ASSESSMENT Probably GI bleeding Hepatocellular carcinoma Cirrhosis Ascites Status post paracentesis History of hep C status post treatment History of duodenal ulcer Anemia Hypertension PLAN OF CARE tele O2 prn titrate to keep sat > 92 %, pulm toilet NPO IVF PPI s/p EGD -> gastritis, f/up with patho results pain management s/p paracentesis, fup with cytology , fluid analysis noted fluid cx NGTD CT A/P pending for this am LFT stable AFP 853 monitor H&H with goal to keep Hgb> 7 s/p 1 u PRBC 12/31 stool OB pain management bowel regimen supportive care case discussed and evaluated by supervising physician Reyna Valencia NP Jan 02, 2020 07:48
[2020-01-02 08:00] VITALS: BP 129/73
[2020-01-02] MEDS: D5NS 1,000 ML IV SCH ×2 (09:02→17:41)
[2020-01-02] MEDS: Sucralfate 1gm tab ORAL SCH ×4 (09:07→20:41)
--- NOTE | 2020-01-02 10:47 | Diagnostic Imaging Report ---
EXAM: CT Abdomen and Pelvis Without and With Intravenous Contrast CLINICAL HISTORY: gastrointestinal hemorrhage TECHNIQUE: Axial computed tomography images of the abdomen and pelvis without and with intravenous contrast. CTDI is 5.1 mGy and DLP is 293.9 mGy-cm. One or more of the following dose reduction techniques were used: automated exposure control, adjustment of the mA and/or kV according to patient size, use of iterative reconstruction technique. COMPARISON: CT abdomen/pelvis on 12/11/2018 FINDINGS: Lung bases: Bibasilar atelectasis. Mediastinum: Small amount of oral contrast visualized distal esophagus. ABDOMEN: Liver: Cirrhotic liver. Multiple heterogeneous masses in the liver, the largest measuring approximately 6.5 x 5.3 x 5.1 cm. Findings are significantly increased compared to prior exam and concerning for neoplasm/metastases. Gallbladder and bile ducts: Distended gallbladder. No calcified gallstones. No ductal dilation. Pancreas: Unremarkable. No mass. No ductal dilation. Spleen: Unremarkable. No splenomegaly. Adrenals: Unremarkable. No mass. Kidneys and ureters: Punctate nonobstructing right renal stones. No hydronephrosis or ureter or stone. Stomach and bowel: Diverticulosis without evidence of diverticulitis. Underdistended colon which limits evaluation. No bowel obstruction. PELVIS: Appendix: Appendix is not visualized on this exam. Bladder: Unremarkable. No mass. No stones. Reproductive: Unremarkable as visualized. ABDOMEN and PELVIS: Intraperitoneal space: Multiple mesenteric nodules, the largest in the mid and lower abdomen, new compared to prior exam. Findings are concerning for mesenteric metastases and/or peritoneal carcinomatosis. No free air. No significant fluid collection. Bones/joints: Degenerative changes of the spine, most prominent in the lower lumbar spine. No acute fracture. No dislocation. Soft tissues: Small to moderate umbilical hernia containing a soft tissue mass. Vasculature: Atherosclerotic changes of the vasculature. No aortic aneurysm or dissection. Lymph nodes: Unremarkable. No enlarged lymph nodes. IMPRESSION: 1. Cirrhotic liver. Multiple heterogeneous masses in the liver, the largest measuring approximately 6.5 x 5.3 x 5.1 cm. Findings are significantly increased compared to prior exam and concerning for neoplasm/metastases. 2. Multiple mesenteric nodules, the largest in the mid and lower abdomen, new compared to prior exam. Findings are concerning for mesenteric metastases and/or peritoneal carcinomatosis. 3. Given the heterogeneity of the masses, components of hemorrhage within the masses are not excluded. 4. Punctate nonobstructing right renal stones. No hydronephrosis or ureter or stone. 5. Small to moderate umbilical hernia containing a soft tissue mass.
[2020-01-02 12:00] VITALS: BP 128/51
--- NOTE | 2020-01-02 14:16 | Internal Med Progress Note ---
Subjective Date of Service: Jan 02, 2020 Physician Name MarielaSlade Attending Physician Daniel Lange MD Current Medications Medications (Trade) Dose Ordered Sig/Na Route PRN Reason Start Time Stop Time Status Last Admin Dose Admin Acetaminophen (Tylenol) 650 mg Q4H PRN ORAL fever 12/30/19 12:00 01/29/20 11:59 01/02/20 00:50 Acetaminophen/ Hydrocodone Bitart ([place] 5/325) 1 tab Q6H PRN ORAL For Pain 12/30/19 17:30 01/06/20 17:29 01/01/20 11:43 Dextrose (Dextrose 50%) 25 ml Q30M PRN IV Hypoglycemia 12/30/19 12:00 03/29/20 11:59 Dextrose (Dextrose 50%) 50 ml Q30M PRN IV Hypoglycemia 12/30/19 12:00 03/29/20 11:59 Dextrose/Sodium Chloride 1,000 ml @ 100 mls/hr Q10H IV 12/30/19 11:54 01/29/20 11:53 01/02/20 09:02 Diphenhydramine HCl (Benadryl) 25 mg Q6H PRN ORAL Itching/Pruritis 12/30/19 12:00 01/29/20 11:59 Nitroglycerin (Ntg) 0.4 mg Q5M X 3 DOSES PRN SL Prn Chest Pain 12/30/19 12:00 01/29/20 11:59 Ondansetron HCl (Zofran) 4 mg Q6H PRN IVP Nausea & Vomiting 12/30/19 12:00 01/29/20 11:59 12/31/19 11:09 Pantoprazole (Protonix) 40 mg EVERY 12 HOURS ORAL 01/01/20 13:15 01/31/20 13:14 01/02/20 09:07 Polyethylene Glycol (Miralax) 17 gm HSPRN PRN ORAL Constipation 12/30/19 12:00 01/29/20 11:59 Sucralfate (Carafate) 1 gm FOUR TIMES A DAY ORAL 01/01/20 18:00 03/31/20 17:59 01/02/20 13:23 Temazepam (Restoril) 15 mg HSPRN PRN ORAL Insomnia 12/30/19 12:00 01/06/20 11:59 Allergies: Coded Allergies: No Known Allergies (Unverified , 02/02/15) ROS Limited/Unobtainable: No Constitutional: Reports: no symptoms HEENT: Reports: no symptoms Cardiovascular: Reports: no symptoms Respiratory: Reports: no symptoms Gastrointestinal/Abdominal: Reports: no symptoms Genitourinary: Reports: no symptoms Neurologic/Psychiatric: Reports: no symptoms Subjective 74 YO M admitted with gastrointestinal hemorrhage. S/P endoscopy 12/31/19. Cover for Int Reji-Dr Lange. Objective Last Vital Signs Date Time Temp Pulse Resp B/P (MAP) Pulse Ox O2 Delivery O2 Flow Rate FiO2 01/02/20 12:00 109 01/02/20 12:00 98.1 20 128/51 (76) 98 01/02/20 08:37 Room Air 12/31/19 14:20 3 Laboratory Tests Test 01/01/20 17:57 01/02/20 05:50 White Blood Count 13.0 K/UL (4.8-10.8) H 11.0 K/UL (4.8-10.8) H Red Blood Count 2.89 M/UL (4.70-6.10) L 2.72 M/UL (4.70-6.10) L Hemoglobin 8.9 G/DL (14.2-18.0) L 8.6 G/DL (14.2-18.0) L Hematocrit 28.3 % (42.0-52.0) L 26.9 % (42.0-52.0) L Mean Corpuscular Volume 98 FL (80-99) 99 FL (80-99) Mean Corpuscular Hemoglobin 31.0 PG (27.0-31.0) 31.5 PG (27.0-31.0) H Mean Corpuscular Hemoglobin Concent 31.5 G/DL (32.0-36.0) L 31.9 G/DL (32.0-36.0) L Red Cell Distribution Width 16.6 % (11.6-14.8) H 16.1 % (11.6-14.8) H Platelet Count 396 K/UL (150-450) 334 K/UL (150-450) Mean Platelet Volume 7.0 FL (6.5-10.1) 6.8 FL (6.5-10.1) Neutrophils (%) (Auto) 82.3 % (45.0-75.0) H 84.3 % (45.0-75.0) H Lymphocytes (%) (Auto) 8.1 % (20.0-45.0) L 6.3 % (20.0-45.0) L Monocytes (%) (Auto) 8.0 % (1.0-10.0) 8.7 % (1.0-10.0) Eosinophils (%) (Auto) 0.4 % (0.0-3.0) 0.2 % (0.0-3.0) Basophils (%) (Auto) 1.3 % (0.0-2.0) 0.5 % (0.0-2.0) Sodium Level 136 MMOL/L (136-145) Potassium Level 4.4 MMOL/L (3.5-5.1) Chloride Level 104 MMOL/L (98-107) Carbon Dioxide Level 23 MMOL/L (21-32) Anion Gap 9 mmol/L (5-15) Blood Urea Nitrogen 5 mg/dL (7-18) L Creatinine 0.9 MG/DL (0.55-1.30) Estimat Glomerular Filtration Rate > 60 mL/min (>60) Glucose Level 122 MG/DL (74-106) H Calcium Level 8.0 MG/DL (8.5-10.1) L Phosphorus Level 3.0 MG/DL (2.5-4.9) Magnesium Level 1.9 MG/DL (1.8-2.4) Total Bilirubin 1.0 MG/DL (0.2-1.0) Aspartate Amino Transf (AST/SGOT) 33 U/L (15-37) Alanine Aminotransferase (ALT/SGPT) 15 U/L (12-78) Alkaline Phosphatase 90 U/L (46-116) Total Protein 6.6 G/DL (6.4-8.2) Albumin 2.5 G/DL (3.4-5.0) L Globulin 4.1 g/dL Albumin/Globulin Ratio 0.6 (1.0-2.7) L Microbiology Date/Time Source Procedure Growth Status 12/31/19 15:30 Ascities Fluid Gram Stain - Final Resulted 12/31/19 15:30 Ascities Fluid Body Fluid Culture - Preliminary NO GROWTH AFTER 24 HOURS Resulted 12/31/19 07:00 Nasopharynx SARS-CoV-2 RdRp Gene Assay - Final Complete Intake and Output 01/01/20 01/02/20 19:00 07:00 Intake Total 240 ml Balance 240 ml Intake Oral 240 ml # Voids 2 2 Objective PHYSICAL EXAMINATION: GENERAL: Patient is a well-developed, well-nourished male, in no apparent distress. HEENT: Eyes, pupils equal and responsive to light and accommodation. Extraocular movements are intact. NECK: Supple. No lymphadenopathy. CHEST: Lungs are clear to auscultation bilaterally without wheezes or rales. CARDIOVASCULAR: Regular rhythm and rate. S1, S2 are normal without murmurs, rubs, or gallops. ABDOMEN: Soft, nontender, and nondistended. Positive bowel sounds. No evidence of hepatosplenomegaly. Currently no rebound or guarding noted. EXTREMITIES: Negative for clubbing, cyanosis, or edema. RECTAL/GENITAL: Exams are not performed. NEUROLOGICAL: Cranial nerves II through XII are grossly intact without focal deficits. Motor strength is 5/5 bilaterally. Deep tendon reflexes are 2+, plantar. Assessment/Plan Assessment/Plan ASSESSMENT: This is a 74-year-old male. 1. Melena. 2. Suprapubic pain. 3. Hypertension. 4. History of hepatocellular carcinoma. 5. Hepatitis C 6. Cirrhosis of the liver 7. Gastritis TREATMENT: 1. Melena/suprapubic pain. A gastroenterology consultation is obtained with Dr. Aureliano Lester. Patient has a history of gastrointestinal hemorrhage. An endoscopy on 12/31/19=gastritis. Start protonix 40 mg BID and carafate 1 gm QID. We will follow recommendations of Gastroenterology. 2. Anemia. This is probably secondary to acute blood loss secondary to acute gastrointestinal hemorrhage. S/P Transfusion 1 unit PRBC 01/01/20. 3. Hypertension. Continue amlodipine as above. 4. History of hepatocellular carcinoma. A CT scan of the abdomen and pelvis is scheduled for 01/01/20 Slade Sierra MD Jan 02, 2020 14:16
[2020-01-02 16:00] VITALS: BP 127/61
[2020-01-02 20:00] VITALS: BP 127/71
[2020-01-03] VITALS: BP 125/70
[2020-01-03 04:00] VITALS: BP 130/75
[2020-01-03] MEDS: D5NS 1,000 ML IV SCH (05:54)
[2020-01-03 07:19] LABS: HEMATOCRIT 27.8 % (42.0-52.0); HEMOGLOBIN 8.8 G/DL (14.2-18.0); MEAN CORPUSCULAR VOLUME 98 FL (80-99); PLATELET COUNT 340 K/UL (150-450); RED BLOOD COUNT 2.83 M/UL (4.70-6.10); RED CELL DISTRIBUTION WIDTH 15.4 % (11.6-14.8); WHITE BLOOD COUNT 12.6 K/UL (4.8-10.8)
[2020-01-03 07:59] LABS: ANION GAP 10 mmol/L (5-15); BLOOD UREA NITROGEN 4 mg/dL (7-18); CALCIUM 8.2 MG/DL (8.5-10.1); CARBON DIOXIDE 22 MMOL/L (21-32); CHLORIDE 104 MMOL/L (98-107); CREATININE 0.8 MG/DL (0.55-1.30); POTASSIUM 4.2 MMOL/L (3.5-5.1); SODIUM 136 MMOL/L (136-145)
[2020-01-03 08:00] VITALS: BP 122/65
--- NOTE | 2020-01-03 09:32 | General Progress Note ---
Assessment/Plan Assessment/Plan: Assessment - h/o Hepatitis C - eradicated in 2014 - Cirrhosis - h/o hepatocellular carcinoma - s/p microwave ablation 2016, negative surveillance, last 03/2019 --> now having recurrent HCC - h/o Duodenal ulcer 01/2015 - anemia, - H&H , 01/2019 - Dark stools--> gastritis per EGD Recommendations - PO diet - PPI - OOB - outpatient f/u with hepatobilliary surgery re recurrent HCC Subjective Allergies: Coded Allergies: No Known Allergies (Unverified , 02/02/15) Subjective Above noted s/p EGD --> gastritis no vomiting tolerating PO d/w patient re markedly elevated AFP and radiologic progression of liver massess advised high likelihood of recurrent HCC patient says he will f/u with Dr. Manzanares at [facility] Objective Last 24 Hour Vital Signs Date Time Temp Pulse Resp B/P (MAP) Pulse Ox O2 Delivery O2 Flow Rate FiO2 01/03/20 08:00 96.6 87 20 122/65 (84) 100 01/03/20 04:00 98.0 98 18 130/75 (93) 99 01/03/20 04:00 102 01/03/20 00:00 99 01/03/20 00:00 97.5 99 18 125/70 (88) 100 01/02/20 21:00 Room Air 01/02/20 20:00 95 01/02/20 20:00 97.0 100 18 127/71 (89) 100 01/02/20 16:00 96.8 102 18 127/61 (83) 100 01/02/20 16:00 102 01/02/20 12:00 109 01/02/20 12:00 98.1 101 20 128/51 (76) 98 Intake and Output 01/02/20 01/03/20 19:00 07:00 Intake Total 140 ml Output Total 1200 ml Balance -1060 ml Intake Oral 140 ml Output Urine Total 1200 ml # Voids 4 3 Laboratory Tests 01/03/20 06:27: White Blood Count 12.6H, Red Blood Count 2.83L, Hemoglobin 8.8L, Hematocrit 27.8L, Mean Corpuscular Volume 98, Mean Corpuscular Hemoglobin 31.2H, Mean Corpuscular Hemoglobin Concent 31.7L, Red Cell Distribution Width 15.4H, Platelet Count 340, Mean Platelet Volume 6.7, Neutrophils (%) (Auto) , Lymphocytes (%) (Auto) , Monocytes (%) (Auto) , Eosinophils (%) (Auto) , Basophils (%) (Auto) , Neutrophils % (Manual) [Pending], Lymphocytes % (Manual) [Pending], Platelet Estimate [Pending], Platelet Morphology [Pending], Sodium Level 136, Potassium Level 4.2, Chloride Level 104, Carbon Dioxide Level 22, Anion Gap 10, Blood Urea Nitrogen 4L, Creatinine 0.8, Estimat Glomerular Filtration Rate > 60, Glucose Level 118H, Calcium Level 8.2L Height (Feet): 6 Height (Inches): 5.00 Weight (Pounds): 177 Objective WDWN AA man NCAT supple CTA RRR Abd soft NT no edema Aureliano Lester MD Jan 03, 2020 09:32
[2020-01-03] MEDS: Sucralfate 1gm tab ORAL SCH (09:40)
--- NOTE | 2020-01-03 11:15 | Consultation ---
History of Present Illness General Chief Complaint: Abdominal Pain Present Illness Allergies: Coded Allergies: No Known Allergies (Unverified , 02/02/15) Medication History Scheduled Amlodipine Besylate (Norvasc), 10 MG ORAL DAILY, (Reported) Discontinued Medications Aspirin* (Aspir 81*), 81 MG ORAL DAILY, (Reported) Discontinued Reason: Pt stopped taking med Hydrocodone Bit/Acetaminophen 5-325* ([place] 5-325*), 1 TAB ORAL Q6H PRN for For Pain Discontinued Reason: Pt stopped taking med Levofloxacin* (Levaquin*), 500 MG ORAL DAILY Discontinued Reason: Pt stopped taking med Lidocaine Patch* (Lidoderm Patch*), 1 PATCH TOPIC see instructions Discontinued Reason: Pt stopped taking med Metronidazole* (Flagyl*), 500 MG ORAL EVERY 8 HOURS Discontinued Reason: Pt stopped taking med Pantoprazole* (Protonix*), 40 MG ORAL DAILY Discontinued Reason: Pt stopped taking med Patient History Healthcare decision maker Resuscitation status Advanced Directive on File Physical Exam Last 24 Hour Vital Signs Date Time Temp Pulse Resp B/P (MAP) Pulse Ox O2 Delivery O2 Flow Rate FiO2 01/03/20 09:00 Room Air 01/03/20 08:00 96.6 87 20 122/65 (84) 100 01/03/20 08:00 99 01/03/20 04:00 98.0 98 18 130/75 (93) 99 01/03/20 04:00 102 01/03/20 00:00 99 01/03/20 00:00 97.5 99 18 125/70 (88) 100 01/02/20 21:00 Room Air 01/02/20 20:00 95 01/02/20 20:00 97.0 100 18 127/71 (89) 100 01/02/20 16:00 96.8 102 18 127/61 (83) 100 01/02/20 16:00 102 01/02/20 12:00 109 01/02/20 12:00 98.1 101 20 128/51 (76) 98 Intake and Output 01/02/20 01/03/20 19:00 07:00 Intake Total 140 ml Output Total 1200 ml Balance -1060 ml Intake Oral 140 ml Output Urine Total 1200 ml # Voids 4 3 Laboratory Tests Test 01/03/20 06:27 White Blood Count 12.6 K/UL (4.8-10.8) H Red Blood Count 2.83 M/UL (4.70-6.10) L Hemoglobin 8.8 G/DL (14.2-18.0) L Hematocrit 27.8 % (42.0-52.0) L Mean Corpuscular Volume 98 FL (80-99) Mean Corpuscular Hemoglobin 31.2 PG (27.0-31.0) H Mean Corpuscular Hemoglobin Concent 31.7 G/DL (32.0-36.0) L Red Cell Distribution Width 15.4 % (11.6-14.8) H Platelet Count 340 K/UL (150-450) Mean Platelet Volume 6.7 FL (6.5-10.1) Neutrophils (%) (Auto) % (45.0-75.0) Lymphocytes (%) (Auto) % (20.0-45.0) Monocytes (%) (Auto) % (1.0-10.0) Eosinophils (%) (Auto) % (0.0-3.0) Basophils (%) (Auto) % (0.0-2.0) Differential Total Cells Counted 100 Neutrophils % (Manual) 87 % (45-75) H Lymphocytes % (Manual) 4 % (20-45) L Monocytes % (Manual) 9 % (1-10) Eosinophils % (Manual) 0 % (0-3) Basophils % (Manual) 0 % (0-2) Band Neutrophils 0 % (0-8) Platelet Estimate Adequate Platelet Morphology Normal Polychromasia 1+ Hypochromasia 1+ Anisocytosis 1+ Sodium Level 136 MMOL/L (136-145) Potassium Level 4.2 MMOL/L (3.5-5.1) Chloride Level 104 MMOL/L (98-107) Carbon Dioxide Level 22 MMOL/L (21-32) Anion Gap 10 mmol/L (5-15) Blood Urea Nitrogen 4 mg/dL (7-18) L Creatinine 0.8 MG/DL (0.55-1.30) Estimat Glomerular Filtration Rate > 60 mL/min (>60) Glucose Level 118 MG/DL (74-106) H Calcium Level 8.2 MG/DL (8.5-10.1) L Height (Feet): 6 Height (Inches): 5.00 Weight (Pounds): 177 Medications Current Medications Medications (Trade) Dose Ordered Sig/Na Route PRN Reason Start Time Stop Time Status Last Admin Dose Admin Acetaminophen (Tylenol) 650 mg Q4H PRN ORAL fever 12/30/19 12:00 01/29/20 11:59 01/02/20 00:50 Acetaminophen/ Hydrocodone Bitart ([place] 5/325) 1 tab Q6H PRN ORAL For Pain 12/30/19 17:30 01/06/20 17:29 01/01/20 11:43 Dextrose (Dextrose 50%) 25 ml Q30M PRN IV Hypoglycemia 12/30/19 12:00 03/29/20 11:59 Dextrose (Dextrose 50%) 50 ml Q30M PRN IV Hypoglycemia 12/30/19 12:00 03/29/20 11:59 Dextrose/Sodium Chloride 1,000 ml @ 100 mls/hr Q10H IV 12/30/19 11:54 01/29/20 11:53 01/03/20 05:54 Diphenhydramine HCl (Benadryl) 25 mg Q6H PRN ORAL Itching/Pruritis 12/30/19 12:00 01/29/20 11:59 Nitroglycerin (Ntg) 0.4 mg Q5M X 3 DOSES PRN SL Prn Chest Pain 12/30/19 12:00 01/29/20 11:59 Ondansetron HCl (Zofran) 4 mg Q6H PRN IVP Nausea & Vomiting 12/30/19 12:00 01/29/20 11:59 12/31/19 11:09 Pantoprazole (Protonix) 40 mg EVERY 12 HOURS ORAL 01/01/20 13:15 01/31/20 13:14 01/03/20 09:40 Polyethylene Glycol (Miralax) 17 gm HSPRN PRN ORAL Constipation 12/30/19 12:00 01/29/20 11:59 Sucralfate (Carafate) 1 gm FOUR TIMES A DAY ORAL 01/01/20 18:00 03/31/20 17:59 01/03/20 09:40 Temazepam (Restoril) 15 mg HSPRN PRN ORAL Insomnia 12/30/19 12:00 01/06/20 11:59 Assessment/Plan Assessment/Plan: 1. Cirrhotic liver. Multiple heterogeneous masses in the liver, the largest measuring approximately 6.5 x 5.3 x 5.1 cm. Findings are significantly increased compared to prior exam and concerning for neoplasm/metastases. 2. Multiple mesenteric nodules, the largest in the mid and lower abdomen, new compared to prior exam. Findings are concerning for mesenteric metastases and/or peritoneal carcinomatosis. 3. Given the heterogeneity of the masses, components of hemorrhage within the masses are not excluded. 4. Punctate nonobstructing right renal stones. No hydronephrosis or ureter or stone. 5. Small to moderate umbilical hernia containing a soft tissue mass. AFP 853 Likely to need outpatient eval, has had ablation already, may require tki v immunorx Jamaal Anderson MD Jan 03, 2020 11:15
--- NOTE | 2020-01-03 12:39 | Pulmonology Progress Note ---
Subjective ROS Limited/Unobtainable: No Allergies: Coded Allergies: No Known Allergies (Unverified , 02/02/15) Objective Last 24 Hour Vital Signs Date Time Temp Pulse Resp B/P (MAP) Pulse Ox O2 Delivery O2 Flow Rate FiO2 01/03/20 09:00 Room Air 01/03/20 08:00 96.6 87 20 122/65 (84) 100 01/03/20 08:00 99 01/03/20 04:00 98.0 98 18 130/75 (93) 99 01/03/20 04:00 102 01/03/20 00:00 99 01/03/20 00:00 97.5 99 18 125/70 (88) 100 01/02/20 21:00 Room Air 01/02/20 20:00 95 01/02/20 20:00 97.0 100 18 127/71 (89) 100 01/02/20 16:00 96.8 102 18 127/61 (83) 100 01/02/20 16:00 102 Intake and Output 01/02/20 01/03/20 19:00 07:00 Intake Total 140 ml Output Total 1200 ml Balance -1060 ml Intake Oral 140 ml Output Urine Total 1200 ml # Voids 4 3 General Appearance: other - thin AA male in NAD HEENT: normocephalic, atraumatic Respiratory: chest wall non-tender, lungs clear Cardiovascular: normal peripheral pulses, normal rate, regular rhythm - SR with occ PVC on tele Abdomen: normal bowel sounds, soft, non tender 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, alert, oriented x 3, responsive Musculoskeletal: normal muscle bulk Microbiology Date/Time Source Procedure Growth Status 12/31/19 15:30 Ascities Fluid Gram Stain - Final Resulted 12/31/19 15:30 Ascities Fluid Body Fluid Culture - Preliminary NO GROWTH AFTER 48 HOURS Resulted Laboratory Tests 01/03/20 06:27: White Blood Count 12.6H, Red Blood Count 2.83L, Hemoglobin 8.8L, Hematocrit 27.8L, Mean Corpuscular Volume 98, Mean Corpuscular Hemoglobin 31.2H, Mean Corpuscular Hemoglobin Concent 31.7L, Red Cell Distribution Width 15.4H, Platelet Count 340, Mean Platelet Volume 6.7, Neutrophils (%) (Auto) , Lymphocytes (%) (Auto) , Monocytes (%) (Auto) , Eosinophils (%) (Auto) , Basophils (%) (Auto) , Differential Total Cells Counted 100, Neutrophils % ( Manual) 87H, Lymphocytes % (Manual) 4L, Monocytes % (Manual) 9, Eosinophils % ( Manual) 0, Basophils % (Manual) 0, Band Neutrophils 0, Platelet Estimate Adequate, Platelet Morphology Normal, Polychromasia 1+, Hypochromasia 1+, Anisocytosis 1+, Sodium Level 136, Potassium Level 4.2, Chloride Level 104, Carbon Dioxide Level 22, Anion Gap 10, Blood Urea Nitrogen 4L, Creatinine 0.8, Estimat Glomerular Filtration Rate > 60, Glucose Level 118H, Calcium Level 8.2L Current Medications Medications (Trade) Dose Ordered Sig/Na Route PRN Reason Start Time Stop Time Status Last Admin Dose Admin Acetaminophen (Tylenol) 650 mg Q4H PRN ORAL fever 12/30/19 12:00 01/29/20 11:59 01/02/20 00:50 Acetaminophen/ Hydrocodone Bitart (Driver 5/325) 1 tab Q6H PRN ORAL For Pain 12/30/19 17:30 01/06/20 17:29 01/01/20 11:43 Dextrose (Dextrose 50%) 25 ml Q30M PRN IV Hypoglycemia 12/30/19 12:00 03/29/20 11:59 Dextrose (Dextrose 50%) 50 ml Q30M PRN IV Hypoglycemia 12/30/19 12:00 03/29/20 11:59 Dextrose/Sodium Chloride 1,000 ml @ 100 mls/hr Q10H IV 12/30/19 11:54 01/29/20 11:53 01/03/20 05:54 Diphenhydramine HCl (Benadryl) 25 mg Q6H PRN ORAL Itching/Pruritis 12/30/19 12:00 01/29/20 11:59 Nitroglycerin (Ntg) 0.4 mg Q5M X 3 DOSES PRN SL Prn Chest Pain 12/30/19 12:00 01/29/20 11:59 Ondansetron HCl (Zofran) 4 mg Q6H PRN IVP Nausea & Vomiting 12/30/19 12:00 01/29/20 11:59 12/31/19 11:09 Pantoprazole (Protonix) 40 mg EVERY 12 HOURS ORAL 01/01/20 13:15 01/31/20 13:14 01/03/20 09:40 Polyethylene Glycol (Miralax) 17 gm HSPRN PRN ORAL Constipation 12/30/19 12:00 01/29/20 11:59 Sucralfate (Carafate) 1 gm FOUR TIMES A DAY ORAL 01/01/20 18:00 03/31/20 17:59 01/03/20 09:40 Temazepam (Restoril) 15 mg HSPRN PRN ORAL Insomnia 12/30/19 12:00 01/06/20 11:59 Assessment/Plan Problems: (1) GI (gastrointestinal hemorrhage) (2) Peritoneal carcinomatosis (3) Intractable abdominal pain (4) Liver cirrhosis (5) History of hypertension (6) Hepatitis C (7) Liver cancer Assessment/Plan s/p paracentesis, 2.7 liters of bloody fluid removed EGD done on friday electrolytes reviewed GI evaluation PRBC prn monitor BP dvt prophylaxis Ct abdomen pelvis: 1. Cirrhotic liver. Multiple heterogeneous masses in the liver, the largest measuring approximately 6.5 x 5.3 x 5.1 cm. Findings are significantly increased compared to prior exam and concerning for neoplasm/ metastases. 2. Multiple mesenteric nodules, the largest in the mid and lower abdomen, new compared to prior exam. Findings are concerning for mesenteric metastases and/or peritoneal carcinomatosis. Erika Santana MD Jan 03, 2020 12:39
[2020-01-03] MEDS ORDERED: SUCRALFATE1 GM ORAL (12:40)
[2020-01-03] MEDS ORDERED: PANTOPRAZOLE SO40 MG ORAL (12:40)
--- NOTE | 2020-01-04 13:50 | Discharge Summary ---
Discharge Summary Discharge Summary _ DATE OF ADMISSION: 12/30/2019 DATE OF DISCHARGE: 01/03/2020 DISCHARGED BY: Dr. Lange REASON FOR ADMISSION: 74 years old male with past medical history of hypertension, liver cancer, presented with increased suprapubic abdominal pain. Patient reported dark stools with associated diarrhea. No fever or chills. No hematemesis or epigastric pain. Upon evaluation patient was tachycardic with heart rate 113 Pulse oximetry was stable on room air. Laboratory work-up revealed leukocytosis WBC 12.6, hemoglobin 7.9 ,hematocrit 25 , platelet count 397. Sodium 133, chloride 100. BUN 12, creatinine 1.0. Glucose 127. AST 44 ALT 20, stable lipase. Troponin negative. EKG revealed sinus tachycardia, no acute ischemic changes. Urinalysis revealed +1 protein,, no evidence of urinary tract infection . Patient admitted for GI hemorrhage and liver cancer. CONSULTANTS: pulmonary/critical care Dr. Santana GI specialist Dr. Lester felt strip finisher/oncologist Dr. Anderson [facility] COURSE: Patient admitted to telemetry floor. GI specialist followed. Patient was hydrated and initially kept n.p.o. Patient undergone EGD on 12/30 which revealed a very short column of esophageal varices without any stigmata, not amenable to banding at this time. No gastric varices. Gastritis, status post biopsy. Duodenal diverticulum. Few duodenal erosion. Paracentesis was ordered given large ascites. At the time of this dictation biopsy results still pending. Patient subsequently undergone ultrasound-guided paracentesis , yielding 2.7 L of grossly bloody fluid. Follow-up ultrasound revealed complete resolution of peritoneal fluid. Ascitic fluid culture was negative. Rapid testing for COVID 19 was negative. LFTs were stable. Patient had microwave ablation in 2017, with negative surveillance afterwards , last in 03/2019. CT of the abdomen and pelvis revealed: 1. Cirrhotic liver. Multiple heterogeneous masses in the liver, the largest measuring approximately 6.5 x 5.3 x 5.1 cm. Findings significantly increased compared to prior exam and were concerning for neoplasm/metastases. 2. Multiple mesenteric nodules, the largest in the mid and lower abdomen new compared to prior exam. Findings were concerning for mesenteric metastases and/or peritoneal carcinomatosis. Based on CT scan results, patient apparently had recurrence of hepatocellular carcinoma. Alpha-fetoprotein 853. Hemoglobin and hematocrit were closely monitored with goal to keep hemoglobin above 7. Patient undergone transfusion of 1 unit of packed of packed red blood cells. Pain management was addressed. Bowel regimen instituted. Patient slowly started on diet as per GI specialist and was able to tolerate diet. PPI continued. GI recommended outpatient follow-up with hepatobiliary surgeon regarding recurrent HCC. Abdominal pain was controlled. No difficulties voiding. Patient was able to tolerate diet. Prior to discharge hemoglobin 8.8 , hematocrit 27.8. Patient was ready for discharge home with outpatient follow-up with his primary care provider and oncologist. FINAL DIAGNOSES: Recurrent hepatocellular carcinoma (s/p microwave ablation 2016, negative surveillance, last 03/2019 ) --> now recurrent GI bleeding s/p EGD-> gastritis Cirrhosis Ascites, status post paracentesis History of hep C , status post treatment History of duodenal ulcer Anemia Hypertension DISCHARGE MEDICATIONS: See Medication Reconciliation list. DISCHARGE INSTRUCTIONS: Patient was discharged home. Patient to follow-up with a primary care provider in 1 week and oncologist due to recurrent HCC. I have been assigned to dictate discharge summary for this account. Reyna Valencia NP Jan 04, 2020 13:50
== END 2020-01-03 13:25 | disposition home or self-care (01) | DRG 378 ==
LOC: EMR 10:34 → EDBEDREQ 11:00 → 2E 11:01 → EDBEDREQ 12:32
PROC: 0DB78ZX Excision of Stomach, Pylorus, Via Natural or Artificial Opening Endoscopic, Diagnostic (ICD-10-PCS; principal; 2019-12-31 13:51)
PROC: 0W9G3ZZ Drainage of Peritoneal Cavity, Percutaneous Approach (ICD-10-PCS; principal; 2019-12-31 13:51)
PROC: 30233N1 Transfusion of Nonautologous Red Blood Cells into Peripheral Vein, Percutaneous Approach (ICD-10-PCS; 2020-01-01)
DX: K29.71 Gastritis, unspecified, with bleeding (principal); R18.8 Other ascites; D62 Acute posthemorrhagic anemia; C78.6 Secondary malignant neoplasm of retroperitoneum and peritoneum; K92.1 Melena; I10 Essential (primary) hypertension; Z85.05 Personal history of malignant neoplasm of liver; K74.60 Unspecified cirrhosis of liver; B19.20 Unspecified viral hepatitis C without hepatic coma; K42.9 Umbilical hernia without obstruction or gangrene; I85.00 Esophageal varices without bleeding; K57.10 Diverticulosis of small intestine without perforation or abscess without bleeding
CPT/HCPCS: 36415; 74178; 76942; 80048; 80053; 81003; 82105; 82150; 83690; 83735; 84100; 84484; 85007; 85025; 85610; 85730; 86850; 86900; 86901; 86920; 87070; 87205; 88104; 89051; 93005; 94003; 94150; 99285; J2405; U0002